=== PATIENT | female | born 1945 | race Hispanic/Latino ===

== ENCOUNTER → 2019-01-13 | Day surgery (SDC) | payer MEDICARE ==
[2018-12-30 12:54] LABS: BASOPHILS % 0.3 % (0.0-1.0); EOSINOPHILS # (AUTO) 0.1 (0.0-0.4); EOSINOPHILS % 1.2 % (0.0-6.0); LYMPHOCYTES # (AUTO) 1.9 (1.0-3.2); LYMPHOCYTES % 32.3 % (18.0-39.1); MEAN CORPUSCULAR HEMOGLOBIN 29.6 pg (28-32); MEAN CORPUSCULAR HGB CONC 32.4 g/dL (31-35); MEAN CORPUSCULAR VOLUME 91.1 fL (81-99); MONOCYTES # (AUTO) 0.5 (0.2-0.8); NEUTROPHILS # (AUTO) 3.4 (2.1-6.9); PLATELET COUNT 185 x10e3/uL (140-360); RED BLOOD COUNT 4.06 x10e6/uL (3.6-5.1); RED CELL DISTRIBUTION WIDTH 13.2 % (11.7-14.4)
[~2019-01-13] MED LIST: CRESTOR PO; HUMALOG100 UNIT/3 SC; LEVEMIR100 UNIT/1 SC; LISINOPRIL PO; MIDAZOLAM HCL 2 MG/2 ML VIAL ONE; PLAVIX75 MG PO; ZOLOFT PO
--- OUTSIDE RECORDS SUMMARY | 2019-01-13 10:05 | XMS REPORT | Continuity of Care Document ---
Author Author [facility] Address Unknown Phone Unavailable Care Team Providers Care Retail Representative Name Role Phone [employer] Unavailable Unavailable Problems Problem Status Onset Date Classification Date Reported Comments Source WEAKNESS/VOMTING Active 08/12/2018 [facility] R52 - "PAIN, UNSPECIFIED" Active 09/29/2016 [facility] Abdominal pain1 Active Problem 03/25/2013 1abnormal LFT's [facility] Abdominal pain1 Active Problem 08/16/2018 abnormal LFT's [place], [facility] Outpatient Imaging [facility] SYNCOPE AND COLLAPSE Active [facility] Medications Medication Details Route Status Patient Instructions Ordering Provider Order Date Source 24 HR mirabegron 50 MG Extended Release Tablet [Myrbetriq] 50 mg, 1 tab, Route: PO, Drug form: ERTAB, Daily, Dosing Weight 109.261, kg, Start date: 08/14/18 9:00:00 SECURITY DISPATCHER, Duration: 30 day, Stop date: 09/12/18 9:00:00 CDT No Longer Active 08/14/2018 [facility] Levemir 40 unit, 0.4 mL, Route: SUB-Q, Drug form: SOLN, Bedtime, Dosing Weight 109.261, kg, Start date: 08/13/18 21:00:00 SECURITY DISPATCHER, Duration: 30 day, Stop date: 09/11/18 21:00:00 CSTNotes: Non-Formulary Drug (Adriel e as Levemir) Do not hold insulin without contacting prescriber WASTE: F/P - Black; E - Municipal Trash Bin "single patient use only" Inactive 08/14/2018 [facility] rosuvastatin 20 mg, 2 tab, Route: PO, Drug form: TAB, Bedtime, Dosing Weight 109.261, kg, Start date: 08/13/18 21:00:00 SECURITY DISPATCHER, Duration: 30 day, Stop date: 09/11/18 21:00:00 CSTNotes: (Same As: Joanna) Inactive 08/14/2018 [facility] Baclofen 10 mg, 1 tab, Route: PO, Drug form: TAB, TID, Dosing Weight 109.261, kg, Start date: 08/13/18 14:00:00 SECURITY DISPATCHER, Duration: 30 day, Stop date: 09/12/18 6:00:00 CDTNotes: (Same As: Lioresal) Inactive 08/13/2018 [facility] clopidogrel 75 mg, 1 tab, Route: PO, Drug form: TAB, Daily, Dosing Weight 109.261, kg, Start date: 08/13/18 10:00:00 SECURITY DISPATCHER, Duration: 30 day, Stop date: 09/12/18 9:00:00 CDTNotes: (Same As: Plavix) Inactive 08/13/2018 [facility] venlafaxine 75 mg, 1 cap, Route: PO, Drug form: ERCAP, Daily, Dosing Weight 109.261, kg, Start date: 08/13/18 10:00:00 SECURITY DISPATCHER, Duration: 30 day, Stop date: 09/12/18 9:00:00 CDTNotes: Do not open, crush, or chew. (Same As: Effexor XR) Inactive 08/13/2018 [facility] Insulin Lispro 1 unit, 0.01 mL, Route: SUB-Q, Drug form: SOLN, Bedtime, Dosing Weight 109.261, kg, PRN Blood Glucose Results, Start date: 08/12/18 21:54:00 SECURITY DISPATCHER, Duration: 30 day, Stop date: 09/11/18 21:53:00 CSTNotes: (Same as: Humalog ) Roll in palms of hands gently; Do not shake `vigorously. "Single Patient Use Only " WASTE: F/P - Black; E - WORKING [employer] WORKS Trash Bin Stable for 28 days at room temperature. Expires in days from Date No Longer Active 08/13/2018 [facility] Glucagon 1 mg, Route: IM, Drug form: PDR/INJ, PRN, Dosing Weight 109.261, kg, PRN Blood Glucose Results, Start date: 08/12/18 21:54:00 SECURITY DISPATCHER, Duration: 30 day, Stop date: 09/11/18 21:53:00 SECURITY DISPATCHER No Longer Active 08/13/2018 [facility] Dextrose 50% Syringe 25 gm, 50 mL, Route: IVP, Drug Form: INJ, Dosing Weight 109.261, kg, PRN, PRN Blood Glucose Results, Start date: 08/12/18 21:54:00 SECURITY DISPATCHER, Duration: 30 day, Stop date: 09/11/18 21:53:00 SECURITY DISPATCHER No Longer Active 08/13/2018 [facility] Saline Flush 0.9% 10 ml, Route: IVP, Drug Form: INJ, Dosing Weight 90.909, kg, Q12H, Start date: 08/12/18 21:00:00 SECURITY DISPATCHER, Duration: 30 day, Stop date: 09/11/18 9:00:00 CSTNotes: (Same as: BD Posiflush) No Longer Active 08/13/2018 [facility] Enoxaparin 40 mg, 0.4 mL, Route: SUB-Q, Drug form: INJ, [id number], Dosing Weight 90.909, kg, Start date: 08/12/18 21:00:00 SECURITY DISPATCHER, Duration: 30 day, Stop date: 09/10/18 21:00:00 CSTNotes: (Same as: Lovenox) No Longer Active 08/13/2018 [facility] Humalog 12 unit, SUB-Q, Lunch, 0 Refill(s) Active 08/12/2018 [facility] insulin detemir 100 UNT/ML Injectable Solution [Levemir] See Instructions, 40 units SUB-Q at bedtime, 0 Refill(s) Active 08/12/2018 [facility] rosuvastatin 20 mg oral tablet 20 mg=1 tab, PO, Daily, dinner time, # 30 tab, 0 Refill(s) Active 08/12/2018 [facility] 24 HR mirabegron 50 MG Extended Release Tablet [Myrbetriq] 50 mg=1 tab, PO, Daily, dinner time, # 30 tab, 0 Refill(s) Active 08/12/2018 [facility] venlafaxine 75 mg oral capsule, extended release 75 mg=1 cap, PO, Daily, morning, # 30 cap, 0 Refill(s) Active 08/12/2018 [facility] Baclofen 10 mg, PO, TID, 0 Refill(s) Active 08/12/2018 [facility] pantoprazole 40 mg oral enteric coated tablet 40 mg=1 tab, PO, Daily, morning, 0 Refill(s) Active 08/12/2018 [facility] clopidogrel 75 mg oral tablet 75 mg=1 tab, PO, Daily, with dinner, 0 Refill(s) Active 08/12/2018 [facility] Hydrochlorothiazide 12.5 MG / Losartan Potassium 100 MG Oral Tablet 1 tab, PO, Daily, morning, # 30 tab, 0 Refill(s) Active 08/12/2018 [facility] Protonix 40 mg, Route: IVP, Drug form: INJ, Before Dinner, Dosing Weight 90.909, kg, Start date: 08/12/18 16:30:00 SECURITY DISPATCHER, Duration: 30 day, Stop date: 09/10/18 16:30:00 CSTNotes: For IV push reconstitute with 10 ml 0.9% sodium chloride and push over 2 minutes. (Same as: Protonix) No Longer Active 08/12/2018 [facility] Saline Flush 0.9% 10 ml, Route: IVP, Drug Form: INJ, Dosing Weight 90.909, kg, PRN, PRN Line Flush, Start date: 08/12/18 15:33:00 SECURITY DISPATCHER, Duration: 30 day, Stop date: 09/11/18 15:32:00 CSTNotes: (Same as: BD Posiflush) No Longer Active 08/12/2018 [facility] Insulin Lispro 2 unit, 0.02 mL, Route: SUB-Q, Drug form: SOLN, Sliding Scale, Dosing Weight 90.909, kg, PRN Blood Glucose Results, Start date: 08/12/18 15:26:00 SECURITY DISPATCHER, Duration: 30 day, Stop date: 09/11/18 15:25:00 C STNotes: (Same as: Humalog ) Roll in palms of hands gently; Do not shake `vigorously. "Single Patient Use Only " WASTE: F/P - Black; E - Municipal Trash Bin Stable for 28 days at room temperature. Expires in days from Date No Longer Active 08/12/2018 [facility] Glucagon 1 mg, Route: IM, Drug form: PDR/INJ, PRN, Dosing Weight 90.909, kg, PRN Blood Glucose Results, Priority: STAT, Start date: 08/12/18 15:26:00 SECURITY DISPATCHER, Duration: 30 day, Stop date: 09/11/18 15:25:00 SECURITY DISPATCHER Inactive 08/12/2018 [facility] Dextrose 50% Syringe 12.5 gm, 25 mL, Route: IVP, Drug Form: INJ, Dosing Weight 90.909, kg, PRN, PRN Blood Glucose Results, Start date: 08/12/18 15:26:00 SECURITY DISPATCHER, Duration: 30 day, Stop date: 09/11/18 15:25:00 SECURITY DISPATCHER Inactive 08/12/2018 [facility] Dextromethorphan Hydrobromide 2 MG/ML / Guaifenesin 20 MG/ML Oral Solution 10 mL, Route: PO, Drug Form: LIQ, Dosing Weight 90.909, kg, Q4H, PRN Cough, Start date: 08/12/18 15:19:00 SECURITY DISPATCHER, Duration: 30 day, Stop date: 09/11/18 15:18:00 CSTNotes: (dextromethorphan-guaifenesin 10-100/5 ml LIQ) (Same as: Robitussin-DM) No Longer Active 08/12/2018 [facility] Albuterol 0.833 MG/ML / Ipratropium [place] 0.167 MG/ML Inhalant Solution [DuoNeb] 3 ml, Route: NEB, Drug Form: SOLN, Dosing Weight 90.909, kg, RQ6H, PRN Congestion, Start date: 08/12/18 15:19:00 SECURITY DISPATCHER, Duration: 30 day, Stop date: 09/11/18 15:18:00 CSTNotes: (Same as: Duoneb) No Longer Active 08/12/2018 [facility] Acetaminophen 325 MG / Hydrocodone Bitartrate 5 MG Oral Tablet [[place] 5/325] 1 tab, Route: PO, Drug Form: TAB, Dosing Weight 90.909, kg, Q4H, PRN Pain Score 4-6, Start date: 08/12/18 15:19:00 SECURITY DISPATCHER, Duration: 30 day, Stop date: 09/11/18 15:18:00 SECURITY DISPATCHER Inactive 08/12/2018 [facility] Hydralazine 10 mg, 0.5 mL, Route: IVP, Drug form: INJ, Q4H, Dosing Weight 90.909, kg, PRN Elevated BP, Start date: 08/12/18 15:19:00 SECURITY DISPATCHER, Duration: 30 day, Stop date: 09/11/18 15:18:00 CSTNotes: (Same as: Kaitlin fernandez) Push over 5 minutes No Longer Active 08/12/2018 [facility] Clonidine Hydrochloride 0.1 MG Oral Tablet 0.1 mg, Route: PO, Drug form: TAB, TID, Dosing Weight 90.909, kg, PRN Elevated BP, Start date: 08/12/18 15:19:00 SECURITY DISPATCHER, Duration: 30 day, Stop date: 09/11/18 15:18:00 SECURITY DISPATCHER Inactive 08/12/2018 [facility] Diphenhydramine 25 mg, 1 tab, Route: PO, Drug form: TAB, Q6H, Dosing Weight 90.909, kg, PRN Itching, Start date: 08/12/18 15:19:00 SECURITY DISPATCHER, Duration: 30 day, Stop date: 09/11/18 15:18:00 SECURITY DISPATCHER No Longer Active 08/12/2018 [facility] Tessalon Perles 100 mg, Route: PO, Drug form: CAP, Q8H, Dosing Weight 90.909, kg, PRN Cough, Start date: 08/12/18 15:19:00 SECURITY DISPATCHER, Duration: 30 day, Stop date: 09/11/18 15:18:00 SECURITY DISPATCHER Inactive 08/12/2018 [facility] Acetaminophen 650 mg, Route: PO, Drug form: TAB, Q4H, Dosing Weight 90.909, kg, PRN For Temp > 100.4 F, Start date: 08/12/18 15:19:00 SECURITY DISPATCHER, Duration: 30 day, Stop date: 09/11/18 15:18:00 SECURITY DISPATCHER Inactive 08/12/2018 [facility] magnesium citrate 58.2 MG/ML Oral Solution 150 ml, Route: PO, Drug Form: LIQ, Dosing Weight 90.909, kg, ONCE, PRN Constipation, Start date: 08/12/18 15:19:00 CSTNotes: (Same as: Citrate of Magnesia) Concentration: 1.745 gm / 30 mL No Longer Active 08/12/2018 [facility] Dulcolax Laxative 10 mg, Route: PO, Drug form: ECTAB, BID, Dosing Weight 90.909, kg, PRN Constipation, Start date: 08/12/18 15:19:00 SECURITY DISPATCHER, Duration: 30 day, Stop date: 09/11/18 15:18:00 SECURITY DISPATCHER Inactive 08/12/2018 [facility] Bisacodyl 10 mg, Route: WV, Drug form: SUPP, Daily, Dosing Weight 90.909, kg, PRN Constipation, Start date: 08/12/18 15:19:00 SECURITY DISPATCHER, Duration: 30 day, Stop date: 09/11/18 15:18:00 SECURITY DISPATCHER Inactive 08/12/2018 [facility] Simethicone 80 mg, 1 tab, Route: PO, Drug form: CHEWTAB, Q6H, Dosing Weight 90.909, kg, PRN Gas, Start date: 08/12/18 15:19:00 SECURITY DISPATCHER, Duration: 2 doses or times, Stop date: Limited # of timesNotes: (Same as: Elias on) No Longer Active 08/12/2018 [facility] Aluminum Hydroxide 40 MG/ML / Magnesium Hydroxide 40 MG/ML / Simethicone 4 MG/ML Oral Suspension 30 mL, Route: PO, Drug Form: SUSP, Dosing Weight 90.909, kg, Q4H, PRN Indigestion, Start date: 08/12/18 15:19:00 SECURITY DISPATCHER, Duration: 30 day, Stop date: 09/11/18 15:18:00 SECURITY DISPATCHER Inactive 08/12/2018 [facility] Ondansetron 4 mg, Route: IVP, Drug form: INJ, Q8H, Dosing Weight 90.909, kg, PRN Nausea & Vomiting, Start date: 08/12/18 15:19:00 SECURITY DISPATCHER, Duration: 30 day, Stop date: 09/11/18 15:18:00 SECURITY DISPATCHER Inactive 08/12/2018 [facility] Milk of Magnesia 30 mL, Route: PO, Drug Form: SUSP, Dosing Weight 90.909, kg, Q3H, PRN Constipation, Start date: 08/12/18 15:19:00 SECURITY DISPATCHER, Duration: 2 doses or times, Stop date: Limited # of timesNotes: (Same as: Milk o f Magnesia, MOM) No Longer Active 08/12/2018 [facility] Sodium Chloride 0.9% IV 1,000 mL 1,000 mL, Rate: 75 ml/hr, Infuse over: 13.3 hr, Route: IV, Dosing Weight 90.909 kg, Total Volume: 1,000, Start date: 08/12/18 15:19:00 SECURITY DISPATCHER, Duration: 30 day, Stop date: 09/11/18 15:18:00 SECURITY DISPATCHER, 2.06, m2 No Longer Active 08/12/2018 [facility] Dulcolax Laxative 10 mg, 2 tab, Route: PO, Drug form: ECTAB, BID, Dosing Weight 90.909, kg, PRN Constipation, Start date: 08/12/18 14:42:00 SECURITY DISPATCHER, Duration: 30 day, Stop date: 09/11/18 14:41:00 CSTNotes: (Same As: Dulcolax , Correctol) (Do Not Crush) "Do Not Crush" No Longer Active 08/12/2018 [facility] magnesium citrate 58.2 MG/ML Oral Solution 150 ml, Route: PO, Dosing Weight 90.909, kg, ONCE, PRN Constipation, Start date: 08/12/18 14:42:00 SECURITY DISPATCHER Inactive 08/12/2018 [facility] Hydralazine 10 mg, Route: IVP, Drug form: INJ, Q4H, Dosing Weight 90.909, kg, PRN Elevated BP, Start date: 08/12/18 14:42:00 SECURITY DISPATCHER, Duration: 30 day, Stop date: 09/11/18 14:41:00 SECURITY DISPATCHER Inactive 08/12/2018 [facility] Clonidine Hydrochloride 0.1 MG Oral Tablet 0.1 mg, 1 tab, Route: PO, Drug form: TAB, TID, Dosing Weight 90.909, kg, PRN Elevated BP, Start date: 08/12/18 14:42:00 SECURITY DISPATCHER, Duration: 30 day, Stop date: 09/11/18 14:41:00 CSTNotes: (Same As: Catapres) No Longer Active 08/12/2018 [facility] Acetaminophen 325 MG / Hydrocodone Bitartrate 5 MG Oral Tablet [[place] 5/325] 1 tab, Route: PO, Drug Form: TAB, Dosing Weight 90.909, kg, Q4H, PRN Pain Score 4-6, Start date: 08/12/18 14:42:00 SECURITY DISPATCHER, Duration: 30 day, Stop date: 09/11/18 14:41:00 CSTNotes: (Same as: [place] 325/5) Do not exceed 4gm/day of acetaminophen. No Longer Active 08/12/2018 [facility] Albuterol 0.833 MG/ML / Ipratropium [place] 0.167 MG/ML Inhalant Solution [DuoNeb] 3 ml, Route: NEB, Drug Form: SOLN, Dosing Weight 90.909, kg, RQ6H, PRN Congestion, Start date: 08/12/18 14:42:00 SECURITY DISPATCHER, Duration: 30 day, Stop date: 09/11/18 14:41:00 SECURITY DISPATCHER Inactive 08/12/2018 [facility] Dextromethorphan Hydrobromide 2 MG/ML / Guaifenesin 20 MG/ML Oral Solution 10 mL, Route: PO, Drug Form: LIQ, Dosing Weight 90.909, kg, Q4H, PRN Cough, Start date: 08/12/18 14:42:00 SECURITY DISPATCHER, Duration: 30 day, Stop date: 09/11/18 14:41:00 SECURITY DISPATCHER Inactive 08/12/2018 [facility] Tessalon Perles 100 mg, 1 cap, Route: PO, Drug form: CAP, Q8H, Dosing Weight 90.909, kg, PRN Cough, Start date: 08/12/18 14:42:00 SECURITY DISPATCHER, Duration: 30 day, Stop date: 09/11/18 14:41:00 CSTNotes: (Same As: Tessalon Michelle es) "Do Not Crush" No Longer Active 08/12/2018 [facility] Diphenhydramine 25 mg, Route: PO, Drug form: TAB, Q6H, Dosing Weight 90.909, kg, PRN Itching, Start date: 08/12/18 14:42:00 SECURITY DISPATCHER, Duration: 30 day, Stop date: 09/11/18 14:41:00 SECURITY DISPATCHER Inactive 08/12/2018 [facility] Acetaminophen 650 mg, 2 tab, Route: PO, Drug form: TAB, Q4H, Dosing Weight 90.909, kg, PRN For Temp > 100.4 F, Start date: 08/12/18 14:42:00 SECURITY DISPATCHER, Duration: 30 day, Stop date: 09/11/18 14:41:00 CSTNotes: Do not exceed 4 gm/day. (Same as: Tylenol) No Longer Active 08/12/2018 [facility] Aluminum Hydroxide 40 MG/ML / Magnesium Hydroxide 40 MG/ML / Simethicone 4 MG/ML Oral Suspension 30 mL, Route: PO, Drug Form: SUSP, Dosing Weight 90.909, kg, Q4H, PRN Indigestion, Start date: 08/12/18 14:42:00 SECURITY DISPATCHER, Duration: 30 day, Stop date: 09/11/18 14:41:00 CSTNotes: (aluminum hydroxide-magnesium hyd-simethicone [id number]/5ml 30 ml ud KAYLA) No Longer Active 08/12/2018 [facility] Bisacodyl 10 mg, 1 supp, Route: WV, Drug form: SUPP, Daily, Dosing Weight 90.909, kg, PRN Constipation, Start date: 08/12/18 14:42:00 SECURITY DISPATCHER, Duration: 30 day, Stop date: 09/11/18 14:41:00 CSTNotes: (Same As: Dulcolax, Bisco-Lax) No Longer Active 08/12/2018 [facility] Ondansetron 4 mg, 2 mL, Route: IVP, Drug form: INJ, Q8H, Dosing Weight 90.909, kg, PRN Nausea & Vomiting, Start date: 08/12/18 14:42:00 SECURITY DISPATCHER, Duration: 30 day, Stop date: 09/11/18 14:41:00 CSTNotes: (Same as: Zofran) MEDICATION WASTE Product Size: 4 mg Product Wasted: ___ mg No Longer Active 08/12/2018 [facility] Simethicone 80 mg, Route: PO, Drug form: CHEWTAB, Q6H, Dosing Weight 90.909, kg, PRN Gas, Start date: 08/12/18 14:42:00 SECURITY DISPATCHER, Duration: 2 doses or times, Stop date: Limited # of times Inactive 08/12/2018 [facility] Milk of Magnesia 30 mL, Route: PO, Drug Form: SUSP, Dosing Weight 90.909, kg, Q3H, PRN Constipation, Start date: 08/12/18 14:42:00 SECURITY DISPATCHER, Duration: 2 doses or times, Stop date: Limited # of times Inactive 08/12/2018 [facility] Aspirin 324 mg, 4 tab, Route: CHEW, Drug form: CHEWTAB, ONCE, Dosing Weight 90.909, kg, Priority: STAT, Start date: 08/12/18 14:05:00 SECURITY DISPATCHER, Stop date: 08/12/18 14:05:00 CSTNotes: Take with food. Inactive 08/12/2018 [facility] Omnipaque 300 injectable solution 100 mL, Route: IVP, Drug Form: SOLN, Dosing Weight 90.909, kg, ONCE, GFR > 45 mL/min, STAT, Start date: 08/12/18 11:49:00 SECURITY DISPATCHER, Stop date: 08/12/18 11:49:00 CSTNotes: (Same as:Omnipaque 300). WASTE: F/P - Black; E - Municipal Trash Bin Inactive 08/12/2018 [facility] Famotidine 20 mg, Route: IVP, ONCE, Dosing Weight 90.909, kg, Priority: STAT, Start date: 08/12/18 10:50:00 SECURITY DISPATCHER, Stop date: 08/12/18 10:50:00 SECURITY DISPATCHER Inactive 08/12/2018 [facility] Ondansetron 4 mg, Route: IVP, ONCE, Dosing Weight 90.909, kg, Priority: STAT, Start date: 08/12/18 10:50:00 SECURITY DISPATCHER, Stop date: 08/12/18 10:50:00 SECURITY DISPATCHER Inactive 08/12/2018 [facility] Sodium Chloride 0.9% (Bolus) IV 500 mL, Infuse Over: 1 hr, Route: IV, ONCE, Priority: STAT, Dosing Weight 90.909 kg, Start date: 08/12/18 10:50:00 SECURITY DISPATCHER, Stop date: 08/12/18 10:50:00 SECURITY DISPATCHER Inactive 08/12/2018 [facility] Saline Flush 0.9% 10 mL, Route: IVP, Drug Form: INJ, Dosing Weight 90.909, kg, PRN, PRN Line Flush, Start date: 08/12/18 10:50:00 SECURITY DISPATCHER, Duration: 30 day, Stop date: 09/11/18 10:49:00 CSTNotes: (Same as: BD Posiflush) Inactive 08/12/2018 [facility] Allergies, Adverse Reactions, Alerts Substance Category Reaction Severity Reaction type Status Date Reported Comments Source penicillins Assertion Drug allergy Active [facility] Immunizations No Data Provided for This Section Results Order Name Results Value Reference Range Date Interpretation Comments Source ELECTROLYTES Sodium Lvl 144 135 - 145 08/13/2018 [facility] ELECTROLYTES Creatinine Lvl 1.12 0.50 - 1.40 08/13/2018 [facility] ELECTROLYTES Glucose Lvl 174 70 - 99 08/13/2018 [facility] ELECTROLYTES BUN 25 7 - 22 08/13/2018 [facility] ELECTROLYTES eGFR 49 08/13/2018 Result Comment: The eGFR is calculated using the CKD-EPI formula. In most young, healthy individuals the eGFR will be >90 mL/min/1.73m2. The eGFR declines with age. An eGFR of 60-89 may be normal in some populations, particularly the elderly, for whom the CKD-EPI formula has not been extensively validated. Use of the eGFR is not recommended in the following populations:

Individuals with unstable creatinine concentrations, including patients and those with serious co-morbid conditions.

Patients with extremes in muscle mass or diet.

The data above are obtained from the National Kidney Disease Education Program (NKDEP) which additionally recommends that when the eGFR is used in patients with extremes of body mass index for purposes of drug dosing, the eGFR should be multiplied by the estimated BMI. [facility] ELECTROLYTES Chloride Lvl 107 95 - 109 08/13/2018 [facility] ELECTROLYTES Potassium Lvl 4.3 3.5 - 5.1 08/13/2018 [facility] ELECTROLYTES Calcium Lvl 8.9 8.5 - 10.5 08/13/2018 [facility] ELECTROLYTES CO2 30 24 - 32 08/13/2018 [facility] ELECTROLYTES AGAP 11.3 10.0 - 20.0 08/13/2018 [facility] Hct 38.3 36.0 - 48.0 08/13/2018 [facility] HEMATOLOGY MCV 91.5 80.0 - 98.0 08/13/2018 [facility] HEMATOLOGY Platelet 154 133 - 450 08/13/2018 [facility] RDW 14.0 11.5 - 14.5 08/13/2018 [facility] MCHC 32.4 32.0 - 36.0 08/13/2018 [facility] MCH 29.6 27.0 - 31.0 08/13/2018 [facility] Hgb 12.4 12.0 - 16.0 08/13/2018 [facility] RBC 4.19 4.20 - 5.40 08/13/2018 [facility] WBC 6.0 3.7 - 10.4 08/13/2018 [facility] MPV 9.1 7.4 - 10.4 08/13/2018 [facility] HEMATOLOGY Segs 64.4 45.0 - 75.0 08/13/2018 [facility] HEMATOLOGY Eosinophils # 0.1 0.0 - 0.5 08/13/2018 [facility] HEMATOLOGY Monocytes # 0.7 0.0 - 0.8 08/13/2018 [facility] HEMATOLOGY Lymphocytes 22.9 20.0 - 40.0 08/13/2018 [facility] HEMATOLOGY Lymphocytes # 1.4 1.0 - 5.5 08/13/2018 [facility] HEMATOLOGY Neutrophils # 3.9 1.5 - 8.1 08/13/2018 [facility] HEMATOLOGY Basophils 0.4 0.0 - 1.0 08/13/2018 [facility] HEMATOLOGY Eosinophils 0.8 0.0 - 4.0 08/13/2018 [facility] Monocytes 11.5 2.0 - 12.0 08/13/2018 [facility] CARDIAC ENZYMES Troponin-I <0.02 0.00 - 0.40 08/13/2018 [facility] CARDIAC ENZYMES Troponin-I 0.02 0.00 - 0.40 08/12/2018 [facility] CARDIAC ENZYMES Troponin-I <0.02 0.00 - 0.40 08/12/2018 [facility] CHEM PANEL Amylase Lvl 77 25 - 115 08/12/2018 [facility] CHEM PANEL Lipase Lvl 183 73 - 393 08/12/2018 [facility] CHEM PANEL eGFR 49 08/12/2018 Result Comment: The eGFR is calculated using the CKD-EPI formula. In most young, healthy individuals the eGFR will be >90 mL/min/1.73m2. The eGFR declines with age. An eGFR of 60-89 may be normal in some populations, particularly the elderly, for whom the CKD-EPI formula has not been extensively validated. Use of the eGFR is not recommended in the following populations:

Individuals with unstable creatinine concentrations, including patients and those with serious co-morbid conditions.

Patients with extremes in muscle mass or diet.

The data above are obtained from the National Kidney Disease Education Program (NKDEP) which additionally recommends that when the eGFR is used in patients with extremes of body mass index for purposes of drug dosing, the eGFR should be multiplied by the estimated BMI. [facility] CHEM PANEL Chloride Lvl 102 95 - 109 08/12/2018 [facility] CHEM PANEL Calcium Lvl 9.2 8.5 - 10.5 08/12/2018 [facility] CHEM PANEL CO2 29 24 - 32 08/12/2018 [facility] CHEM PANEL Total Protein 7.3 6.4 - 8.4 08/12/2018 [facility] CHEM PANEL Albumin Lvl 3.6 3.5 - 5.0 08/12/2018 [facility] CHEM PANEL Creatinine Lvl 1.11 0.50 - 1.40 08/12/2018 [facility] CHEM PANEL Sodium Lvl 139 135 - 145 08/12/2018 [facility] CHEM PANEL Potassium Lvl 4.6 3.5 - 5.1 08/12/2018 [facility] CHEM PANEL ALT 20 0 - 65 08/12/2018 [facility] CHEM PANEL AST 21 0 - 37 08/12/2018 [facility]M PANEL Alk Phos 105 39 - 136 08/12/2018 [facility] CHEM PANEL Bili Total 0.4 0.2 - 1.3 08/12/2018 [facility] CHEM PANEL BUN 30 7 - 22 08/12/2018 [facility] CHEM PANEL Glucose Lvl 209 70 - 99 08/12/2018 [facility] CHEM PANEL B/C Ratio 27 6 - 25 08/12/2018 [facility] CHEM PANEL Globulin 3.7 2.7 - 4.2 08/12/2018 [facility] CHEM PANEL A/G Ratio 1.0 0.7 - 1.6 08/12/2018 [facility] CHEM PANEL AGAP 12.6 10.0 - 20.0 08/12/2018 [facility] HEMATOLOGY Monocytes # 0.3 0.0 - 0.8 08/12/2018 [facility] HEMATOLOGY Lymphocytes # 0.8 1.0 - 5.5 08/12/2018 [facility] HEMATOLOGY Neutrophils # 6.6 1.5 - 8.1 08/12/2018 [facility] HEMATOLOGY Basophils 0.3 0.0 - 1.0 08/12/2018 [facility] HEMATOLOGY Lymphocytes 10.3 20.0 - 40.0 08/12/2018 [facility] HEMATOLOGY Monocytes 4.2 2.0 - 12.0 08/12/2018 [facility] HEMATOLOGY Segs 85.2 45.0 - 75.0 08/12/2018 [facility] HEMATOLOGY RDW 13.7 11.5 - 14.5 08/12/2018 [facility] HEMATOLOGY Hct 42.2 36.0 - 48.0 08/12/2018 [facility] HEMATOLOGY WBC 7.8 3.7 - 10.4 08/12/2018 [facility] HEMATOLOGY RBC 4.63 4.20 - 5.40 08/12/2018 [facility] [facility] HEMATOLOGY MPV 9.0 7.4 - 10.4 08/12/2018 [facility] HEMATOLOGY Platelet 160 133 - 450 08/12/2018 [facility] HEMATOLOGY Hgb 13.7 12.0 - 16.0 08/12/2018 [facility] HEMATOLOGY MCHC 32.5 32.0 - 36.0 08/12/2018 [facility] HEMATOLOGY MCH 29.6 27.0 - 31.0 08/12/2018 [facility] HEMATOLOGY MCV 91.3 80.0 - 98.0 08/12/2018 [facility] HEMATOLOGY PT 12.1 12.0 - 14.7 08/12/2018 [facility] HEMATOLOGY INR 0.91 0.85 - 1.17 08/12/2018 [facility] HEMATOLOGY PTT 33.5 22.9 - 35.8 08/12/2018 [facility] URINE AND STOOL UA Sq Epi Few /LPF Few /LPF 08/12/2018 [facility] URINE AND STOOL UA WBC 2 0 - 5 08/12/2018 [facility] URINE AND STOOL UA Mucus Few /LPF None Seen /LPF 08/12/2018 [facility] URINE AND STOOL UA RBC 25 0 - 2 08/12/2018 [facility] URINE AND STOOL UA Bacteria Occasional /HPF None Seen /HPF 08/12/2018 [facility] URINE AND STOOL UA Leuk Est Negative (08/12/18 10:55 AM) Negative 08/12/2018 [facility] URINE AND STOOL UA Protein 100 mg/dL Negative mg/dL 08/12/2018 [facility] URINE AND STOOL UA pH 6.5 5.0 - 8.0 08/12/2018 [facility] URINE AND STOOL UA Ketones Negative *NA* (08/12/18 10:55 AM) Negative 08/12/2018 [facility] URINE AND STOOL UA Bili Negative *NA* (08/12/18 10:55 AM) Negative 08/12/2018 [facility] URINE AND STOOL UA Glucose 250 *ABN* (08/12/18 10:55 AM) Negative 08/12/2018 [facility] URINE AND STOOL UA Nitrite Negative (08/12/18 10:55 AM) Negative 08/12/2018 [facility] URINE AND STOOL UA Blood Moderate *ABN* (08/12/18 10:55 AM) Negative 08/12/2018 [facility] URINE AND STOOL UA Urobilinogen 0.2 0.1 - 1.0 08/12/2018 [facility] URINE AND STOOL UA Color Yellow *NA* (08/12/18 10:55 AM) Yellow 08/12/2018 [facility] URINE AND STOOL UA Turbidity Slight Cloudy (08/12/18 10:55 AM) Clear 08/12/2018 [facility] URINE AND STOOL UA Spec Grav 1.020 <=1.030 08/12/2018 [facility] Pathology Reports No Data Provided for This Section Diagnostic Reports Report Value Date Source Brain wo contrast MRI Clinical Indication: - left weakness, N/V Comparison: Comparison is made to CT study of 08/12/2018 MR study 08/05/2018 TECHNIQUE: Multiplanar MRI of the brain is performed on a 1.5 Aida magnet. Contrast: None FINDINGS: BRAIN PARENCHYMA: There is no acute cortical infarct, parenchymal hemorrhage or an intra-axial mass. Cystic encephalomalacia with hemosiderin deposition is present from infarction and previous hemorrhage of the right putamen extending into the pal radiata and involving the caudate nucleus. There is a chronic cortical infarct of the right pre and postcentral gyri of the frontal and parietal lobe. There is ex vacuo change to the posterior body and atrium of the lateral ventricle. There is Wallerian degeneration. Findings are stable. There is a chronic cortical infarct the left frontal lobe with subcortical gliosis. Flow is seen in the 4th portions of both vertebral arteries, the basilar artery and left internal carotid artery. Occlusion of the right is present. There is flow in the anterior to indicating artery and M1/M2 segments of the middle cerebral artery. There are no extra-axial fluid collections. Sella and parasellar structures in normal. There is no cerebellar tonsillar ectopia. The cochlea, vestibule and 7th and 8th nerve fascicles in normal. CEREBELLOPONTINE REGIONS AND SKULL BASE: The cerebellopontine angles appear unremarkable. The skull base, craniocervical junction, and brainstem are normal. The optic chiasm is normal. The sellar and pineal regions are unremarkable. VENTRICLES: The ventricles are normal in size and configuration. The basilar cisterns are normal. VESSELS: The venous sinuses are grossly unremarkable. The expected intracranial flow voids are present. ORBITS, VISUALIZED PARANASAL SINUSES AND MASTOIDS: The visualized orbits and paranasal sinuses are unremarkable. The mastoid air cells are clear. IMPRESSION: There is no acute cortical infarct, parenchymal hemorrhage or an intra-axial mass. Cystic encephalomalacia with hemosiderin deposition is present from infarction and previous hemorrhage of the right putamen extending into the pal radiata and involving the caudate nucleus. There is a chronic cortical infarct of the right pre and postcentral gyri of the frontal and parietal lobe. There is ex vacuo change to the posterior body and atrium of the lateral ventricle. There is Wallerian degeneration. Findings are stable. There is a chronic cortical infarct the left frontal lobe with subcortical gliosis. Occlusion of the petrous, precavernous and cavernous portion of the right internal carotid artery is stable. SL: [place] 08/12/2018 [facility] Brain wo contrast CT Patient Name: BREANNA WELLS : 1945; Age: 72 years y/o Female MR: [id number] Study: Brain wo contrast CT 08/12/2018 10:50 AM SECURITY DISPATCHER Ordering Physician: Kilo Cantu DO Clinical Indication: - generalized weakness; Comparison: 08/05/2018 TECHNIQUE: CT images were obtained from the foramen magnum to the vertex without the use of intravenous contrast on a multidetector CT. Coronal and sagittal reconstructions were obtained. CT imaging performed at this location utilizes radiation dose optimization techniques which include one or more of the following: -Automated exposure control -Adjustment of the mA and/or kV according to patient size -Use of iterative reconstruction technique CT Radiation Dose DLP 1140 mGy-cm FINDINGS: No evidence of acute intracranial hemorrhage. No mass effect, midline shift or extra-axial fluid collection. Old right MCA infarct with encephalomalacia and gliosis in the right frontoparietal and temporal lobes and large cystic encephalomalacia in the region of the basal ganglia. There is compensatory dilatation of the right lateral ventricle and wallerian degeneration in the descending tracts. Small old left frontal infarct. The calvarium, paranasal sinuses and mastoids are unremarkable. IMPRESSION: No acute intracranial process evident. Old right MCA infarct. Old small left frontal infarct. If there is further concern for intracranial pathology or acute stroke, further assessment with an MRI of the brain should be considered. SL: [id number] 08/12/2018 [facility] ED Abdomen/Pelvis IV contrast only CT Clinical Indication: - vomiting and abdominal pain. Comparison: CT dated 07/25/2010 TECHNIQUE: Helical imaging was performed from diaphragm through the symphysis with multiplanar coronal and sagittal reformations obtained. CT imaging was performed with exposure control parameters to reduce radiation dose. IV CONTRAST: 100 cc Omnipaque. GI CONTRAST: NONE CT imaging performed at this location utilizes radiation dose optimization techniques which include one or more of the following: -Automated exposure control -Adjustment of the mA and/or kV according to patient size -Use of iterative reconstruction technique CT Radiation Dose DLP 1299.55 mGy-cm FINDINGS: LOWER CHEST: The lung bases are clear. LIVER: Unremarkable. GALLBLADDER: Status post cholecystectomy INTRAHEPATIC BILE DUCT AND EXTRAHEPATIC BILE DUCT: Mild intrahepatic biliary dilatation. CBD measures 1.2 cm, unchanged. PANCREAS: Unremarkable. SPLEEN: Unremarkable. ADRENALS: Unremarkable. KIDNEYS AND URETERS: Large exophytic cyst measuring approximately 6.5 x 7.1 x 5.8 cm. No hydronephrosis in either kidney. STOMACH: Small hiatal hernia BOWEL: Colonic diverticulosis without CT evidence of diverticulitis. No bowel wall thickening or obstruction.. The lack of orally administered contrast material limits assessment. APPENDIX: Normal appendix PERITONEUM AND RETROPERITONEUM: No ascites or free air. No other fluid collection. Moderate to severe atherosclerotic disease of the abdominal aorta and its branches. No abdominal aortic aneurysm. LYMPH NODES: Unremarkable. PELVIS: No pelvic mass or adenopathy. BLADDER: Unremarkable. OSSEOUS STRUCTURES: No acute abnormality seen. SOFT TISSUES: Moderate size fat-containing umbilical hernia. IMPRESSION: Status post cholecystectomy. Colonic diverticulosis without CT evidence of diverticulitis. Normal appendix. Moderate size fat-containing umbilical hernia. Small hiatal hernia. SL: ALIVIA 08/12/2018 [facility] Brain wo contrast MRI Clinical Indication: Left-sided weakness and parkinsonism Comparison: CT dated 08/05/2018 TECHNIQUE: Multiplanar MRI of the brain is performed without gadolinium contrast. Axial T1, T2, FLAIR and diffusion weighted imaging is performed with sagittal FLAIR and coronal T1-weighted imaging. Full and complete MRI brain without gadolinium contrast exam was performed. Contrast: None. FINDINGS: There is no diffusion evidence of acute infarction. There is no acute intracranial hemorrhage or mass effect. There are moderate involutional changes in the brain. There is an old right MCA infarct. Wallerian degeneration is noted in the right cerebral peduncle. Old infarct is noted in the left frontal lobe. Small foci of T2 hyperintensity are noted in the left periventricular region and eunice likely secondary to microvascular white matter disease. There is no extra-axial collection. There is moderate ventriculomegaly secondary to involutional changes. The cervicomedullary junction is unremarkable. The visualized intracranial flow voids are unremarkable. The visualized orbits, sella and suprasellar region are within normal limits. The visualized paranasal sinuses and mastoids are clear. IMPRESSION: No acute infarct, intracranial hemorrhage or mass effect. Old right MCA infarct. Old infarct in the left frontal lobe. SL: ALIVIA 08/05/2018 [facility] Brain/Neck CTA EXAM: CTA BRAIN EXAM: CTA NECK DATE: 08/05/2018 11:07 AM SECURITY DISPATCHER INDICATION: - I67.89 Memory loss COMPARISON: None TECHNIQUE: Rapid acquisition spiral CT images of the brain and neck were obtained between the aortic arch and the cranial vertex during intravenous infusion of iodinated contrast for the purposes of CT angiography. 3-D CT angiographic images are created using MIP technique at the acquisition workstation. The source images are also presented for interpretation. IV contrast: 100 cc of intravenous Omnipaque CT imaging performed at this location utilizes radiation dose optimization techniques which include one or more of the following: -Automated exposure control -Adjustment of the mA and/or kV according to patient size -Use of iterative reconstruction technique CT Radiation Dose DLP 3851 mGy-cm FINDINGS: NECK CTA: Aortic arch: The great vessels originate from the aortic arch in the standard configuration. Mild atheromatous changes. No origin stenosis.. The vertebral artery origins are patent bilaterally. Carotid arteries: The common carotid arteries are unremarkable. There are moderate atheromatous calcifications in the right carotid bulb. There is complete occlusion of the right cervical internal carotid artery without reconstitution in the neck. ECA is unremarkable. Moderate atheromatous calcifications in the left carotid bulb and proximal internal carotid artery without flow-limiting stenosis in the internal carotid artery or ECA. Vertebral arteries: The vertebral arteries have a normal course, caliber and contour. Asymmetry at the level of the tongue, likely right sided atrophy. BRAIN CTA: There is occlusion of the horizontal petrous portion of the right internal carotid artery. There is reconstitution of the cavernous and supraclinoid segments. The supra clinoid segment is smaller in caliber compared to the left. M1 and M2 segments of the right MCA and A1 and A2 segments of the right NURYS are patent. Old infarct in the distribution of right MCA is present with cystic encephalomalacia in the basal ganglia and insula malacia/gliosis in the right frontoparietal and temporal lobes. Left intracranial internal carotid artery, left middle and anterior cerebral arteries are unremarkable. The anterior communicating artery is unremarkable. Bilateral posterior communicating arteries are visualized, right one larger than the left. The vertebrobasilar system is grossly unremarkable. The deep cerebral veins and major venous sinuses are normal. The brain parenchyma and other incidental structures are unremarkable. 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 Right MCA and right NURYS are patent. Patent right posterior communicating artery and anterior communicating artery. Rest of the intracranial vessels are patent. Mild intracranial atherosclerosis. Old right MCA infarct. Moderate atheromatous changes in the left carotid bulb without flow-limiting stenosis. No flow-limiting vertebral artery stenosis. Asymmetry appearance of the tongue, possibly right-sided atrophy. (All qualitative and quantitative assessments of carotid bifurcation and proximal internal carotid artery stenosis are made referencing the distal internal carotid artery {NASCET criteria}.) 08/05/2018 [facility] Breast Mammo Scrn SHAWN incl CAD MA BILATERAL DIGITAL SCREENING MAMMOGRAM WITH CAD: 12/25/2017 CLINICAL: Encounter For Screening Mammogram For Malignant Neoplasm Of Breast/Z12.31. Current study was evaluated with a Computer Aided Detection (CAD) system. COMPARISON:Comparison is made to exams dated: 2016 mammogram, 09/01/2015 mammogram, 07/14/2014 mammogram, and 05/07/2013 mammogram - [facility]. TECHNIQUE: Mammographic views were obtained using digital acquisition. Current study was also evaluated with a Computer Aided Detection (CAD) system. FINDINGS: There are scattered fibroglandular densities in both breasts. No significant masses, calcifications, or other findings are seen in either breast. There has been no significant interval change. IMPRESSION: NEGATIVE RECOMMENDATION:There is no mammographic evidence of malignancy. A 1 year screening mammogram is recommended.(12/26/2018) This exam was interpreted at [id number] at [facility]. Professional services are provided by the [facility]. Dr. Lis Levine D.O. ht/missy:12/25/2017 11:06:59 Program Paraprofessional(s): RT Mario(R)(M), [facility] letter sent: BI-RADS 1/2 Mammogram BI-RADS: 1 Negative 12/25/2017 [facility] Breast Mammo Scrn SHAWN incl CAD MA - BREAST MAMMO SCRN SHAWN INCL CAD MA BILATERAL DIGITAL SCREENING MAMMOGRAM WITH CAD: 2016 CLINICAL: Screening/Z12.31. Current study was evaluated with a Computer Aided Detection (CAD) system. Comparison is made to exams dated: 09/01/2015 mammogram, 07/14/2014 mammogram and 05/07/2013 mammogram - [facility]. There are scattered fibroglandular densities in both breasts. Findings: No significant masses, calcifications, or other findings are seen in either breast. There has been no significant interval change. IMPRESSION: BENIGN There is no mammographic evidence of malignancy. A 1 year screening mammogram is recommended. Professional services are provided by the [facility] Diagnostic Imaging. Romana junior/missy:12/22/2016 08:50:38 Program Paraprofessional: Erin Belle, [facility] This exam was dictated and interpreted by [address] [place] [id number]. letter sent: Normal exam Mammogram BI-RADS: 2 Benign 2016 [facility] Hip bilat w pelvis and both lat hips DX EXAM: Hip bilat w pelvis and both lat hips DX HISTORY: hip pain COMPARISON: 05/14/2012 AP pelvis and lateral view of each hip. FINDINGS: There is mild bilateral joint space narrowing with small acetabular rim osteophyte formation. No fracture or dislocation is seen. No focal osseous lesion is apparent. IMPRESSION: Mild degenerative change. 10/02/2016 [facility] Digital Mammo Screening Shawn MA - DIGITAL MAMMO SCREENING SHAWN MA BILATERAL DIGITAL SCREENING MAMMOGRAM WITH CAD: 09/01/2015 CLINICAL: Z12.31 Encounter For Screening Mammogram For Malignant Neoplasm Of Breast. Current study was evaluated with a Computer Aided Detection (CAD) system. Comparison is made to exams dated: 07/14/2014 mammogram, 05/07/2013 mammogram - [facility], 08/12/2010 mammogram - [facility] and 06/06/2002 mammogram - [facility]. There are scattered fibroglandular densities in both breasts. There are benign appearing calcifications in both breasts. No significant masses, calcifications, or other findings are seen in either breast. There has been no significant interval change. IMPRESSION: BENIGN There is no mammographic evidence of malignancy. A 1 year screening mammogram is recommended. Thiago Deluca M.D. /penrad:09/03/2015 08:36:30 Program Paraprofessional: Renate Duvall RT(R)(M), [facility] This exam was dictated and interpreted by [id number] for Dominique. letter sent: Normal exam Mammogram BI-RADS: 2 Benign 09/01/2015 [facility] Digital Mammo Screening Shawn MA - DIGITAL MAMMO SCREENING SHAWN MA BILATERAL DIGITAL SCREENING MAMMOGRAM WITH CAD: 07/14/2014 CLINICAL: Routine. Current study was evaluated with a Computer Aided Detection (CAD) system. Comparison is made to exams dated: 05/07/2013 mammogram - [facility] and 08/12/2010 mammogram - [facility]. The tissue of both breasts is almost entirely fat. Acquired images are the best technically achievable. No significant masses, calcifications, or other findings are seen in either breast. There has been no significant interval change. IMPRESSION: NEGATIVE There is no mammographic evidence of malignancy. A screening mammogram in one year is recommended. Dr. Lis Levine D.O. /penrad:07/14/2014 10:57:50 Program Paraprofessional: Vicki Schmitz RT(R)(M), [facility] This exam was dictated and interpreted by [id number] for Dominique. letter sent: Normal exam Mammogram BI-RADS: 1 Negative 07/14/2014 [facility] Knee 4+ views bilat Exam: Right and left knee x-rays, 4 views each Reason for Exam: Bilateral knee pain Comparison Exam: None Discussion: Right: No acute bony abnormalities. Mild tricompartmental osteoarthritis. No suspicious osteoblastic or osteolytic lesions. Left: No acute bony abnormalities. Mild tricompartmental osteoarthritis. No suspicious osteoblastic or osteolytic lesions. Impression: 1. Mild tricompartmental osteoarthritis. 03/07/2014 [facility] Shoulder series LEFT SHOULDER SERIES CLINICAL HISTORY: Shoulder pain. COMPARISON IMAGING: None. FINDINGS: Three views of the shoulder were acquired. Tiny marginal osteophytes along the glenoid suggest early osteoarthritis. Joint space is otherwise maintained. Bones appear demineralized. DEXA scan could be considered if not already performed. No fracture, dislocation, or suspicious radiopaque foreign body is seen. Soft tissues are unremarkable. IMPRESSION: Early osteoarthritis. Bones appear demineralized. 10/18/[address] [facility] Digital Mammo Screening Shawn MA - DIGITAL MAMMO SCREENING SHAWN MA BILATERAL DIGITAL SCREENING MAMMOGRAM WITH CAD: 05/07/2013 CLINICAL: Screening. Current study was evaluated with a Computer Aided Detection (CAD) system. Comparison is made to exam dated: 08/12/2010 mammogram - [facility]. The tissue of both breasts is predominantly fatty. Acquired images are the best technically achievable. No significant masses, calcifications, or other findings are seen in either breast. There has been no significant interval change. IMPRESSION: BENIGN There is no mammographic evidence of malignancy. A screening mammogram in one year is recommended. Dr. Samy Matias M.D. eoc/penrad:05/18/2013 09:05:46 Program Paraprofessional: Maria Smith RT, [facility] This exam was dictated and interpreted by [id number] for Opal Mata. letter sent: Normal exam Mammogram BI-RADS: 2 Benign 05/07/2013 [facility] Shoulder 2+ Views Bilateral Six views of the shoulders. INDICATION: Pain. FINDINGS: Internal rotation of both shoulders is not entirely achieved. No acute fracture or dislocation of both shoulders. Intact glenohumeral joints. Mild left greater than right acromioclavicular osteoarthritis. IMPRESSION: No acute fracture 03/23/[address] [facility] Consultation Notes No Data Provided for This Section Discharge Summaries No Data Provided for This Section History and Physicals No Data Provided for This Section Vital Signs Vital Sign Value Date Comments Source Systolic (mm Hg) 142 08/13/2018 [facility] Diastolic (mm Hg) 78 08/13/2018 [facility] Heart Rate 81 08/13/2018 [facility] Systolic (mm Hg) 146 08/13/2018 [facility] Diastolic (mm Hg) 71 08/13/2018 [facility] Temperature Oral (F) 97.7 F 08/13/2018 [facility] Heart Rate 81 08/13/2018 [facility] Respitory Rate 18 08/13/2018 [facility] Respitory Rate 18 08/13/2018 [facility] Systolic (mm Hg) 129 08/13/2018 [facility] Diastolic (mm Hg) 80 08/13/2018 [facility] Temperature Oral (F) 97.9 F 08/13/2018 [facility] Heart Rate 90 08/13/2018 [facility] Respitory Rate 18 08/13/2018 [facility] Temperature Oral (F) 97.8 F 08/13/2018 [facility] BMI Calculated 42.67 08/12/2018 [facility] Weight 109.261 08/12/2018 [facility] Height 160.02 cm 08/12/2018 [facility] BMI Calculated 34.4 08/12/2018 [facility] Weight 90.909 08/12/2018 [facility] Height 162.56 cm 08/12/2018 [facility] Encounters Location Location Details Encounter Type Encounter Number Reason For Visit Attending Provider ADM Date DC Date Status Source [facility] [id number] Jaida Joann 10/18/2013 10/19/2013 [facility] [id number] Jaida Joann 03/07/2014 03/08/2014 [facility] [place] [id number] Jaida Joann 07/14/2014 07/15/2014 [facility] [place] [id number] Jaida Joann 09/01/2015 09/02/2015 [facility] [place] [id number] Jaida Joann 10/02/2016 10/03/2016 [facility] [place] [id number] Jaida Joann 11/17/2016 11/18/2016 [facility] [place] [facility] [id number] Jaida Joann 2016 12/21/2016 [facility] [place] [facility] [id number] Jaida Joann 12/25/2017 12/26/2017 [facility] Outpatient Imaging [facility] Outpt Diag Services [id number] Roger Faust 08/05/2018 08/06/2018 [facility] Outpatient Imaging [facility] Observation [id number] Fatou Hooks 08/12/2018 08/13/2018 [facility] Procedures Procedure Code Date Perfomer Comments Source Cataract extraction [id number] [facility] Cholecystectomy [id number] [facility] Open reduction and fixation of fracture<sup>1</sup> [id number] left leg [facility] Assessment and Plan Assessment and Plan Date Source Extracted from:Title: Discharge Summary * Author: Roxi Ogden NP Date: 08/13/18 Discharge Information No changes made to medications this visit Patient to reintroduce blood pressure medication and insulin as blood pressure and diet stabilizes See med rec for detail Patient is advised to follow-up with her PCP within 1 week of discharge Discharge Plan Discharge Summary Plan Discharge Status: stable. Discharge instructions given: to patient. Discharge disposition: discharge to home. Extracted from:Title: Progress Note *neuro Author: Ny Mason MD Date: 08/12/18 Impression and Plan See dictation #[id number] Nausea, vomiting, lethargy, increased left sided weakness/numbness: now resolved. CT head unremarkable - MRI brain to look for posterior circulation infarct which could cause these symptoms. 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 08/13/2018 [facility] Plan of Care No Data Provided for This Section Social History Social History Date Source Social History TypeResponse Substance Abuse Use: None. Alcohol Never Smoking Status Never smoker; Exposure to Tobacco Smoke None; Cigarette Smoking Last 365 Days No; Reg Smoking Cessation Counseling No entered on: 08/12/18 08/12/2018 [facility] No data available for this section 08/06/2018 [facility] Outpatient Imaging [facility] No data available for this section 12/26/2017 [facility] Family History No Data Provided for This Section Advance Directives No Data Provided for This Section Functional Status No Data Provided for This Section
--- OUTSIDE RECORDS SUMMARY | 2019-01-13 10:06 | XMS REPORT | Summary of Care ---
Author Author [facility] [place] Organization [facility] [place] Address Unknown Phone Unavailable Encounter HQ Encntr_aliludmila(FIN) [phone] Date(s): 12/20/16 - 12/20/16 [facility] [place] [address] [place] [phone] Discharge Disposition: Home or Self Care Attending Physician: Jaida David MD Vital Signs No data available for this section Problem List Condition Effective Dates Status Health Status Informant Abdominal Active pain(Confirmed)1 1abnormal LFT's Allergies, Adverse Reactions, Alerts Substance Reaction Severity Status penicillins Active Medications No data available for this section Results No data available for this section Immunizations No data available for this section Procedures No data available for this section Social History No data available for this section Assessment and Plan No data available for this section
--- OUTSIDE RECORDS SUMMARY | 2019-01-13 10:06 | XMS REPORT | Summary of Care ---
Author Author [facility] [place] Organization [facility] [place] Address Unknown Phone Unavailable Encounter HQ Encntr_alias(FIN) [id number] Date(s): 12/25/17 - 12/25/17 [facility] [place] [address] [place] [phone] Discharge Disposition: Home or Self Care Attending [...]
--- OUTSIDE RECORDS SUMMARY | 2019-01-13 10:06 | XMS REPORT | Summary of Care ---
Author Author [facility] [place] Organization [facility] [place] Address Unknown Phone Unavailable Encounter HQ Angelitantr_adan(FIN) [phone] Date(s): 11/17/16 - 11/17/16 [facility] [place] [address] [place] [phone] Discharge Disposition: Home or Self Care Attending [...]
--- OUTSIDE RECORDS SUMMARY | 2019-01-13 10:06 | XMS REPORT | Summary of Care ---
Author Author [facility] Outpatient Imaging [facility] Outpatient Imaging [facility] Address Unknown Phone Unavailable Encounter HQ Encntr_alias(FIN) [id number] Date(s): 08/05/18 - 08/05/18 [facility] Outpatient Imaging [facility] [address] [place], [place] [address]- Discharge Disposition: Home or Self Care Attending Physician: Roger Faust MD Referring Physician: Roger Faust MD Vital Signs No data available for [...]
--- OUTSIDE RECORDS SUMMARY | 2019-01-13 10:07 | XMS REPORT | Summary of Care ---
Author Author [facility] Organization [facility] Address Unknown Phone Unavailable Encounter PAU Trevino(ENRIQUE) [id number] Date(s): 08/12/18 - 08/13/18 [facility] [id number] [place] [address]- Discharge Disposition: Home or Self Care Attending Physician: Fatou Hooks MD Vital Signs 1 2 3 Most recent to oldest [Reference Range]: 160.02 cm (08/12/18 4:01 PM) 162.56 cm (08/12/18 10:01 AM) Height 97.7 DegF (08/13/18 11:25 AM) 97.9 DegF (08/13/18 7:37 AM) 97.8 DegF (08/13/18 3:30 AM) Temperature Oral [96.4-99.1 DegF] 142/78 mmHg *HI* (08/13/18 12:30 PM) 146/71 mmHg *HI* (08/13/18 11:25 AM) 129/80 mmHg (08/13/18 7:37 AM) Blood Pressure [90-140/60-90 mmHg] 18 BRMIN (08/13/18 11:25 AM) 18 BRMIN (08/13/18 10:30 AM) 18 BRMIN (08/13/18 7:37 AM) Respiratory Rate [14-20 BRMIN] 81 bpm (08/13/18 12:30 PM) 81 bpm (08/13/18 11:25 AM) 90 bpm (08/13/18 7:37 AM) Peripheral Pulse Rate [60-100 bpm] 109.261 kg (08/12/18 4:01 PM) 90.909 kg (08/12/18 10:01 AM) Weight 42.67 m2 (08/12/18 4:01 PM) 34.4 m2 (08/12/18 10:01 AM) Body Mass Index Problem List Condition Effective Dates Status Health Status Informant Abdominal Active pain(Confirmed)1 1abnormal LFT's Allergies, Adverse Reactions, Alerts Substance Reaction Severity Status penicillins Active Medications acetaminophen 650 mg, Route: PO, Drug form: TAB, Q4H, Dosing Weight 90.909, kg, PRN For Temp > 100.4 F, Start date: 08/12/18 15:19:00 [employer], Duration: 30 day, Stop date: 15:18:00 [employer] HEL[employer] Start Date: 08/12/18 Stop Date: 08/12/18 Status: Deleted acetaminophen 650 mg, 2 tab, Route: PO, Drug form: TAB, Q4H, Dosing Weight 90.909, kg, PRN For Temp > 100.4 F, Start date: 08/12/18 14:42:00 [employer] HEL[employer], Duration: 30 day, Stop date: 09/11/18 14:41:00 [employer]PA[employer] HELPER Notes: Do not exceed 4 gm/day. (Same as: Tylenol) Start Date: 08/12/18 Stop Date: 08/13/18 Status: Discontinued Al hydroxide/Mg hydroxide/simethicone 200 mg-200 mg-20 mg/5 mL oral suspension 30 mL, Route: PO, Drug Form: SUSP, Dosing Weight 90.909, kg, Q4H, PRN Indigestio n, Start date: 08/12/18 15:19:00 [employer] HEL[employer], Duration: 30 day, Stop date: 09/11/18 15:1 8:00 [employer]PA[employer]ER HELPER Start Date: 08/12/18 Stop Date: 08/12/18 Status: Deleted Al hydroxide/Mg hydroxide/simethicone 200 mg-200 mg-20 mg/5 mL oral suspension 30 mL, Route: PO, Drug Form: SUSP, Dosing Weight 90.909, kg, Q4H, PRN Indigestio n, Start date: 08/12/18 14:42:00 [employer] HELPER, Duration: 30 day, Stop date: 09/11/18 14:4 1:00 [employer] REPAIRER HELPER Notes: (aluminum hydroxide-magnesium hyd-simethicone [phone]/5ml 30 ml ud S US) Start Date: 08/12/18 Stop Date: 08/13/18 Status: Discontinued aspirin 324 mg, 4 tab, Route: CHEW, Drug form: CHEWTAB, ONCE, Dosing Weight 90.909, kg, Priority: STAT, Start date: 08/12/18 14:05:00 [employer] REPAIRER HELPER, Stop date: 08/12/18 14:05:00 [employer] REPAIRER HELPER Notes: Take with food. Start Date: 08/12/18 Stop Date: 08/12/18 Status: Completed baclofen 10 mg, PO, TID, 0 Refill(s) Start Date: 08/12/18 Status: Ordered baclofen 10 mg, 1 tab, Route: PO, Drug form: TAB, TID, Dosing Weight 109.261, kg, Start d ate: 08/13/18 14:00:00 [employer] HELPER, Duration: 30 day, Stop date: 09/12/18 6:00:00 CDT Notes: (Same As: Sammy) Start Date: 08/13/18 Stop Date: 08/13/18 Status: Discontinued bisacodyl 10 mg, Route: MD, Drug form: SUPP, Daily, Dosing Weight 90.909, kg, PRN Constipa tion, Start date: 08/12/18 15:19:00 [employer] HELPER, Duration: 30 day, Stop date: 09/11/18 1 5:18:00 [employer]PA[employer]ER HELPER Start Date: 08/12/18 Stop Date: 08/12/18 Status: Deleted bisacodyl 10 mg, 1 supp, Route: MD, Drug form: SUPP, Daily, Dosing Weight 90.909, kg, PRN Constipation, Start date: 08/12/18 14:42:00 [employer]PAIRER HELPER, Duration: 30 day, Stop date: 14:41:00 [employer] REPAIRER HELPER Notes: (Same As: Dulcolax, Bisco-Lax) Start Date: 08/12/18 Stop Date: 08/13/18 Status: Discontinued cloNIDine 0.1 mg oral tablet 0.1 mg, Route: PO, Drug form: TAB, TID, Dosing Weight 90.909, kg, PRN Elevated B P, Start date: 08/12/18 15:19:00 [employer]PAIRER HELPER, Duration: 30 day, Stop date: 09/11/18 15:1 8:00 [employer] REPAIRER HELPER Start Date: 08/12/18 Stop Date: 08/12/18 Status: Deleted cloNIDine 0.1 mg oral tablet 0.1 mg, 1 tab, Route: PO, Drug form: TAB, TID, Dosing Weight 90.909, kg, PRN Ivette vated BP, Start date: 08/12/18 14:42:00 [employer] REPAIRER HELPER, Duration: 30 day, Stop date: 14:41:00 [employer] REPAIRER HELPER Notes: (Same As: Catapres) Start Date: 08/12/18 Stop Date: 08/13/18 Status: Discontinued clopidogrel 75 mg, 1 tab, Route: PO, Drug form: TAB, Daily, Dosing Weight 109.261, kg, Start date: 08/13/18 10:00:00 [employer]ER HELPER, Duration: 30 day, Stop date: 09/12/18 9:00:00 CDT Notes: (Same As: Plavix) Start Date: 08/13/18 Stop Date: 08/13/18 Status: Discontinued clopidogrel 75 mg oral tablet 75 mg=1 tab, PO, Daily, with dinner, 0 Refill(s) Start Date: 08/12/18 Status: Ordered dextromethorphan-guaiFENesin 10 mg-100 mg/5 mL oral liquid 10 mL, Route: PO, Drug Form: LIQ, Dosing Weight 90.909, kg, Q4H, PRN Cough, Star t date: 08/12/18 15:19:00 [employer]ER HELPER, Duration: 30 day, Stop date: 09/11/18 15:18:00 CS T Notes: (dextromethorphan-guaifenesin 10-100/5 ml LIQ) (Same as: Robitussin-DM) Start Date: 08/12/18 Stop Date: 08/13/18 Status: Discontinued dextromethorphan-guaiFENesin 10 mg-100 mg/5 mL oral liquid 10 mL, Route: PO, Drug Form: LIQ, Dosing Weight 90.909, kg, Q4H, PRN Cough, Star t date: 08/12/18 14:42:00 [employer] HELPER, Duration: 30 day, Stop date: 09/11/18 14:41:00 CS T Start Date: 08/12/18 Stop Date: 08/12/18 Status: Deleted Dextrose 50% Syringe 25 gm, 50 mL, Route: IVP, Drug Form: INJ, Dosing Weight 109.261, kg, PRN, PRN Bl ood Glucose Results, Start date: 08/12/18 21:54:00 [employer]PAIRER HELPER, Duration: 30 day, Stop d ate: 09/11/18 21:53:00 [employer] REPAIRER HELPER Start Date: 08/12/18 Stop Date: 08/13/18 Status: Discontinued Dextrose 50% Syringe 12.5 gm, 25 mL, Route: IVP, Drug Form: INJ, Dosing Weight 109.261, kg, PRN, PRN Blood Glucose Results, Start date: 08/12/18 21:54:00 [employer] REPAIRER HELPER, Duration: 30 day, Stop date: 09/11/18 21:53:00 [employer] REPAIRER HELPER Start Date: 08/12/18 Stop Date: 08/13/18 Status: Discontinued Dextrose 50% Syringe 12.5 gm, 25 mL, Route: IVP, Drug Form: INJ, Dosing Weight 90.909, kg, PRN, PRN B lood Glucose Results, Start date: 08/12/18 15:26:00 [employer] REPAIRER HELPER, Duration: 30 day, Stop date: 09/11/18 15:25:00 [employer] REPAIRER HELPER Start Date: 08/12/18 Stop Date: 08/12/18 Status: Discontinued Dextrose 50% Syringe 25 gm, 50 mL, Route: IVP, Drug Form: INJ, Dosing Weight 90.909, kg, PRN, PRN Blo od Glucose Results, Start date: 08/12/18 15:26:00 [employer] REPAIRER HELPER, Duration: 30 day, Stop da te: 09/11/18 15:25:00 [employer] REPAIRER HELPER Start Date: 08/12/18 Stop Date: 08/12/18 Status: Discontinued diphenhydrAMINE 25 mg, 1 tab, Route: PO, Drug form: TAB, Q6H, Dosing Weight 90.909, kg, PRN Itch ing, Start date: 08/12/18 15:19:00 [employer] REPAIRER HELPER, Duration: 30 day, Stop date: 09/11/18 15 :18:00 [employer] REPAIRER HELPER Start Date: 08/12/18 Stop Date: 08/13/18 Status: Discontinued diphenhydrAMINE 25 mg, Route: PO, Drug form: TAB, Q6H, Dosing Weight 90.909, kg, PRN Itching, St art date: 08/12/18 14:42:00 [employer] REPAIRER HELPER, Duration: 30 day, Stop date: 09/11/18 14:41:00 [employer] REPAIRER HELPER Start Date: 08/12/18 Stop Date: 08/12/18 Status: Deleted Dulcolax Laxative 10 mg, Route: PO, Drug form: ECTAB, BID, Dosing Weight 90.909, kg, PRN Constipat ion, Start date: 08/12/18 15:19:00 [employer]OBI[employer] REPAIRER HELPER, Duration: 30 day, Stop date: 09/11/18 15 :18:00 [employer] REPAIRER HELPER Start Date: 08/12/18 Stop Date: 08/12/18 Status: Deleted Dulcolax Laxative 10 mg, 2 tab, Route: PO, Drug form: ECTAB, BID, Dosing Weight 90.909, kg, PRN Co nstipation, Start date: 08/12/18 14:42:00 [employer] REPAIRER HELPER, Duration: 30 day, Stop date: 03/24 14:41:00 [employer]OMO[employer] REPAIRER HELPER Notes: (Same As: Dulcolax, Correctol) (Do Not Crush) "Do Not Crush" Start Date: 08/12/18 Stop Date: 08/13/18 Status: Discontinued DuoNeb inhalation solution 3 ml, Route: NEB, Drug Form: SOLN, Dosing Weight 90.909, kg, RQ6H, PRN Congestio n, Start date: 08/12/18 15:19:00 [employer] REPAIRER HELPER, Duration: 30 day, Stop date: 09/11/18 15:1 8:00 [employer] REPAIRER HELPER Notes: (Same as: Duoneb) Start Date: 08/12/18 Stop Date: 08/13/18 Status: Discontinued DuoNeb inhalation solution 3 ml, Route: NEB, Drug Form: SOLN, Dosing Weight 90.909, kg, RQ6H, PRN Congestio n, Start date: 08/12/18 14:42:00 [employer]OBI[employer] REPAIRER HELPER, Duration: 30 day, Stop date: 09/11/18 14:4 1:00 [employer] REPAIRER HELPER Start Date: 08/12/18 Stop Date: 08/12/18 Status: Deleted enoxaparin 40 mg, 0.4 mL, Route: SUB-Q, Drug form: INJ, [id number], Dosing Weight 90.909, kg, Start date: 08/12/18 21:00:00 [employer] REPAIRER HELPER, Duration: 30 day, Stop date: 09/10/18 21:00: 00 [employer] REPAIRER HELPER Notes: (Same as: Lovenox) Start Date: 08/12/18 Stop Date: 08/13/18 Status: Discontinued famotidine 20 mg, Route: IVP, ONCE, Dosing Weight 90.909, kg, Priority: STAT, Start date: 0 08/12/18 10:50:00 [employer] REPAIRER HELPER, Stop date: 08/12/18 10:50:00 [employer] REPAIRER HELPER Start Date: 08/12/18 Stop Date: 08/12/18 Status: Completed glucagon 1 mg, Route: IM, Drug form: PDR/INJ, PRN, Dosing Weight 109.261, kg, PRN Blood G lucose Results, Start date: 08/12/18 21:54:00 [employer] REPAIRER HELPER, Duration: 30 day, Stop date: 09/11/18 21:53:00 [employer] REPAIRER HELPER Start Date: 08/12/18 Stop Date: 08/13/18 Status: Discontinued glucagon 1 mg, Route: IM, Drug form: PDR/INJ, PRN, Dosing Weight 90.909, kg, PRN Blood Gl ucose Results, Priority: STAT, Start date: 08/12/18 15:26:00 [employer] REPAIRER HELPER, Duration: 30 d ay, Stop date: 09/11/18 15:25:00 [employer] REPAIRER HELPER Start Date: 08/12/18 Stop Date: 08/12/18 Status: Discontinued Humalog 12 unit, SUB-Q, Lunch, 0 Refill(s) Start Date: 08/12/18 Status: Ordered Humalog 10 unit, SUB-Q, After Breakfast, 0 Refill(s) Start Date: 08/12/18 Status: Ordered Humalog 10 unit, SUB-Q, Dinner, 0 Refill(s) Start Date: 08/12/18 Status: Ordered hydrALAZINE 10 mg, 0.5 mL, Route: IVP, Drug form: INJ, Q4H, Dosing Weight 90.909, kg, PRN El evated BP, Start date: 08/12/18 15:19:00 [employer] REPAIRER HELPER, Duration: 30 day, Stop date: 09/11 15:18:00 [employer] REPAIRER HELPER Notes: (Same as: Apresoline)Push over 5 minutes Start Date: 08/12/18 Stop Date: 08/13/18 Status: Discontinued hydrALAZINE 10 mg, Route: IVP, Drug form: INJ, Q4H, Dosing Weight 90.909, kg, PRN Elevated B P, Start date: 08/12/18 14:42:00 [employer] REPAIRER HELPER, Duration: 30 day, Stop date: 09/11/18 14:4 1:00 [employer] REPAIRER HELPER Start Date: 08/12/18 Stop Date: 08/12/18 Status: Deleted hydrochlorothiazide-losartan 12.5 mg-100 mg oral tablet 1 tab, PO, Daily, morning, # 30 tab, 0 Refill(s) Start Date: 08/12/18 Status: Ordered insulin glargine 40 unit, 0.4 mL, Route: SUB-Q, Drug form: SOLN, Bedtime, Dosing Weight 109.261, kg, Start date: 08/13/18 21:00:00 [employer] REPAIRER HELPER, Duration: 30 day, Stop date: 09/11/18 21: 00:00 [employer] REPAIRER HELPER Notes: Non-Formulary Drug(Same as Levemir)Do not hold insulin without contacting prescriberWASTE: F/P - Black; E - Municipal Trash Bin "single patient use only" Start Date: 08/13/18 Stop Date: 08/13/18 Status: Canceled insulin lispro 1 unit, 0.01 mL, Route: SUB-Q, Drug form: SOLN, Bedtime, Dosing Weight 109.261, kg, PRN Blood Glucose Results, Start date: 08/12/18 21:54:00 [employer] REPAIRER HELPER, Duration: 30 d ay, Stop date: 09/11/18 21:53:00 [employer] REPAIRER HELPER Notes: (Same as: Humalog ) Roll in palms of hands gently; Do not shake `vigorou sly. "Single Patient Use Only " WASTE: F/P - Black; E - Municipal Trash Bin St able for 28 days at room temperature.Expires in days from Da te Start Date: 08/12/18 Stop Date: 08/13/18 Status: Discontinued insulin lispro 4 unit, 0.04 mL, Route: SUB-Q, Drug form: SOLN, Bedtime, Dosing Weight 109.261, kg, PRN Blood Glucose Results, Start date: 08/12/18 21:54:00 [employer] REPAIRER HELPER, Duration: 30 d ay, Stop date: 09/11/18 21:53:00 [employer]OMOBILE B[employer] REPAIRER HELPER Notes: (Same as: Humalog ) Roll in palms of hands gently; Do not shake `vigorou sly. "Single Patient Use Only " WASTE: F/P - Black; E - Municipal Trash Bin St able for 28 days at room temperature.Expires in days from Da te Start Date: 08/12/18 Stop Date: 08/13/18 Status: Discontinued insulin lispro 2 unit, 0.02 mL, Route: SUB-Q, Drug form: SOLN, Bedtime, Dosing Weight 109.261, kg, PRN Blood Glucose Results, Start date: 08/12/18 21:54:00 [employer] REPAIRER HELPER, Duration: 30 d ay, Stop date: 09/11/18 21:53:00 AUTOMOBILE B[employer] REPAIRER HELPER Notes: (Same as: Humalog ) Roll in palms of hands gently; Do not shake `vigorou sly. "Single Patient Use Only " WASTE: F/P - Black; E - Municipal Trash [address] St able for 28 days at room temperature.Expires in days from Da te Start Date: 08/12/18 Stop Date: 08/13/18 Status: Discontinued insulin lispro 3 unit, 0.03 mL, Route: SUB-Q, Drug form: SOLN, Bedtime, Dosing Weight 109.261, kg, PRN Blood Glucose Results, Start date: 08/12/18 21:54:00 AUT[employer]OBILE [employer] REPAIRER HELPER, Duration: 30 d ay, Stop date: 09/11/18 21:53:00 AUTOMOBILE B[employer] REPAIRER HELPER Notes: (Same as: Humalog ) Roll in palms of hands gently; Do not shake `vigorou sly. "Single Patient Use Only " WASTE: F/P - Black; E - Municipal Trash [address] St able for 28 days at room temperature.Expires in days from Da te Start Date: 08/12/18 Stop Date: 08/13/18 Status: Discontinued insulin lispro 2 unit, 0.02 mL, Route: SUB-Q, Drug form: SOLN, Sliding Scale, Dosing Weight 90. 909, kg, PRN Blood Glucose Results, Start date: 08/12/18 15:26:00 [employer] REPAIRER HELPER, Duration: 30 day, Stop date: 09/11/18 15:25:00 AUTOMOBILE B[employer] REPAIRER HELPER Notes: (Same as: Humalog ) Roll in palms of hands gently; Do not shake `vigorou sly. "Single Patient Use Only " WASTE: F/P - Black; E - Municipal Trash [address] St able for 28 days at room temperature.Expires in days from Da te Start Date: 08/12/18 Stop Date: 08/13/18 Status: Discontinued insulin lispro 1 unit, 0.01 mL, Route: SUB-Q, Drug form: SOLN, Sliding Scale, Dosing Weight 90. 909, kg, PRN Blood Glucose Results, Start date: 08/12/18 15:26:00 AUT[employer]OBILE B[employer] REPAIRER HELPER, Duration: 30 day, Stop date: 09/11/18 15:25:00 AUTOMOBILE BODY REPAIRER HELPER Notes: (Same as: Humalog ) Roll in palms of hands gently; Do not shake `vigorou sly. "Single Patient Use Only " WASTE: F/P - Black; E - Municipal Trash [address] St able for 28 days at room temperature.Expires in days from Da te Start Date: 08/12/18 Stop Date: 08/13/18 Status: Discontinued insulin lispro 3 unit, 0.03 mL, Route: SUB-Q, Drug form: SOLN, Sliding Scale, Dosing Weight 90. 909, kg, PRN Blood Glucose Results, Start date: 08/12/18 15:26:00 AUT[employer]OBILE [employer] REPAIRER HELPER, Duration: 30 day, Stop date: 09/11/18 15:25:00 AUTOMOBILE B[employer] REPAIRER HELPER Notes: (Same as: Humalog ) Roll in palms of hands gently; Do not shake `vigorou sly. "Single Patient Use Only " WASTE: F/P - Black; E - Municipal Trash Bin St able for 28 days at room temperature.Expires in days from Da te Start Date: 08/12/18 Stop Date: 08/13/18 Status: Discontinued insulin lispro 4 unit, 0.04 mL, Route: SUB-Q, Drug form: SOLN, Sliding Scale, Dosing Weight 90. 909, kg, PRN Blood Glucose Results, Start date: 08/12/18 15:26:00 AUTOMOBILE B[employer] REPAIRER HELPER, Duration: 30 day, Stop date: 09/11/18 15:25:00 AUTOMOBILE BODY REPAIRER HELPER Notes: (Same as: Humalog ) Roll in palms of hands gently; Do not shake `vigorou sly. "Single Patient Use Only " WASTE: F/P - Black; E - Municipal Trash Bin St able for 28 days at room temperature.Expires in days from Da te Start Date: 08/12/18 Stop Date: 08/13/18 Status: Discontinued insulin lispro 5 unit, 0.05 mL, Route: SUB-Q, Drug form: SOLN, Sliding Scale, Dosing Weight 90. 909, kg, PRN Blood Glucose Results, Start date: 08/12/18 15:26:00 AUTOMOBILE B[employer] REPAIRER HELPER, Duration: 30 day, Stop date: 09/11/18 15:25:00 AUTOMOBILE BODY REPAIRER HELPER Notes: (Same as: Humalog ) Roll in palms of hands gently; Do not shake `vigorou sly. "Single Patient Use Only " WASTE: F/P - Black; E - Municipal Trash Bin St able for 28 days at room temperature.Expires in days from Da te Start Date: 08/12/18 Stop Date: 08/13/18 Status: Discontinued Levemir 100 units/mL See Instructions, 40 units SUB-Q at bedtime, 0 Refill(s) Start Date: 08/12/18 Status: Ordered magnesium citrate 1.745 g/30 mL oral liquid 150 ml, Route: PO, Drug Form: LIQ, Dosing Weight 90.909, kg, ONCE, PRN Constipat ion, Start date: 08/12/18 15:19:00 AUTOMO[employer] REPAIRER HELPER Notes: (Same as: Citrate of Magnesia)Concentration: 1.745 gm / 30 mL Start Date: 08/12/18 Stop Date: 08/13/18 Status: Discontinued magnesium citrate 1.745 g/30 mL oral liquid 150 ml, Route: PO, Dosing Weight 90.909, kg, ONCE, PRN Constipation, Start date: 08/12/18 14:42:00 [employer]OBI[employer] REPAIRER HELPER Start Date: 08/12/18 Stop Date: 08/12/18 Status: Deleted Milk of Magnesia 30 mL, Route: PO, Drug Form: SUSP, Dosing Weight 90.909, kg, Q3H, PRN Constipati on, Start date: 08/12/18 15:19:00 AUT[employer]OBILE B[employer] REPAIRER HELPER, Duration: 2 doses or times, Stop date: Yaima bhatia # of times Notes: (Same as: Milk of Magnesia, MOM) Start Date: 08/12/18 Stop Date: 08/13/18 Status: Discontinued Milk of Magnesia 30 mL, Route: PO, Drug Form: SUSP, Dosing Weight 90.909, kg, Q3H, PRN Constipati on, Start date: 08/12/18 14:42:00 AUT[employer]OBI[employer] B[employer] REPAIRER HELPER, Duration: 2 doses or times, Stop date: Yaima chavirad # of times Start Date: 08/12/18 Stop Date: 08/12/18 Status: Deleted Myrbetriq 50 mg oral tablet, extended release 50 mg, 1 tab, Route: PO, Drug form: ERTAB, Daily, Dosing Weight 109.261, kg, Sta rt date: 08/14/18 9:00:00 [employer]OBI[employer] REPAIRER HELPER, Duration: 30 day, Stop date: 09/12/18 9:00:00 CDT Start Date: 08/14/18 Stop Date: 08/13/18 Status: Canceled Myrbetriq 50 mg oral tablet, extended release 50 mg=1 tab, PO, Daily, dinner time, # 30 tab, 0 Refill(s) Start Date: 08/12/18 Status: Ordered [place] 5/325 oral tablet 1 tab, Route: PO, Drug Form: TAB, Dosing Weight 90.909, kg, Q4H, PRN Pain Score 4-6, Start date: 08/12/18 15:19:00 AUTOMOBILE B[employer] REPAIRER HELPER, Duration: 30 day, Stop date: 09/11/18 15 :18:00 AUTOMOBILE B[employer] REPAIRER HELPER Start Date: 08/12/18 Stop Date: 08/12/18 Status: Deleted [place] 5/325 oral tablet 1 tab, Route: PO, Drug Form: TAB, Dosing Weight 90.909, kg, Q4H, PRN Pain Score 4-6, Start date: 08/12/18 14:42:00 AUTOMOBILE B[employer] REPAIRER HELPER, Duration: 30 day, Stop date: 09/11/18 14 :41:00 AUTOMOBILE B[employer] REPAIRER HELPER Notes: (Same as: [place] 325/5) Do not exceed 4gm/day of acetaminophen. Start Date: 08/12/18 Stop Date: 08/13/18 Status: Discontinued Omnipaque 300 injectable solution 100 mL, Route: IVP, Drug Form: SOLN, Dosing Weight 90.909, kg, ONCE, GFR > 45 mL/min, STAT, Start date: 08/12/18 11:49:00 AUTOMOBILE B[employer] REPAIRER HELPER, Stop date: 08/12/18 11:49:00 AUTOMOBILE BODY REPAIRER HELPER Notes: (Same as:Omnipaque 300).WASTE: F/P - Black; E - Municipal Trash Bin Start Date: 08/12/18 Stop Date: 08/12/18 Status: Completed ondansetron 4 mg, Route: IVP, ONCE, Dosing Weight 90.909, kg, Priority: STAT, Start date: 10:50:00 AUTOMOBILE BODY REPAIRER HELPER, Stop date: 08/12/18 10:50:00 AUTOMOBILE BODY REPAIRER HELPER Start Date: 08/12/18 Stop Date: 08/12/18 Status: Completed ondansetron 4 mg, Route: IVP, Drug form: INJ, Q8H, Dosing Weight 90.909, kg, PRN Nausea & Vomiting, Start date: 08/12/18 15:19:00 AUTOMOBILE B[employer] REPAIRER HELPER, Duration: 30 day, Stop date: 09/11 15:18:00 AUTOMOBILE BODY REPAIRER HELPER Start Date: 08/12/18 Stop Date: 08/12/18 Status: Deleted ondansetron 4 mg, 2 mL, Route: IVP, Drug form: INJ, Q8H, Dosing Weight 90.909, kg, PRN Nause a & Vomiting, Start date: 08/12/18 14:42:00 AUTOMOBILE B[employer] REPAIRER HELPER, Duration: 30 day, Stop date: 09/11/18 14:41:00 AUTOMOBILE B[employer] REPAIRER HELPER Notes: (Same as: Mary) MEDICATION WASTE Product Size: 4 mgProduct Was laura: ___ mg Start Date: 08/12/18 Stop Date: 08/13/18 Status: Discontinued pantoprazole 40 mg oral enteric coated tablet 40 mg=1 tab, PO, Daily, morning, 0 Refill(s) Start Date: 08/12/18 Status: Ordered Protonix 40 mg, Route: IVP, Drug form: INJ, Before Dinner, Dosing Weight 90.909, kg, Star t date: 08/12/18 16:30:00 AUTOMOBILE B[employer] REPAIRER HELPER, Duration: 30 day, Stop date: 09/10/18 16:30:00 CS T Notes: For IV push reconstitute with 10 ml 0.9% sodium chloride and push over 2 minutes. (Same as: Protonix) Start Date: 08/12/18 Stop Date: 08/13/18 Status: Discontinued rosuvastatin 20 mg, 2 tab, Route: PO, Drug form: TAB, Bedtime, Dosing Weight 109.261, kg, Sta rt date: 08/13/18 21:00:00 AUTOMOBILE B[employer] REPAIRER HELPER, Duration: 30 day, Stop date: 09/11/18 21:00:[address] Notes: (Same As: Crestor) Start Date: 08/13/18 Stop Date: 08/13/18 Status: Canceled rosuvastatin 20 mg oral tablet 20 mg=1 tab, PO, Daily, dinner time, # 30 tab, 0 Refill(s) Start Date: 08/12/18 Stop Date: 09/11/18 Status: Ordered Saline Flush 0.9% 10 mL, Route: IVP, Drug Form: INJ, Dosing Weight 90.909, kg, PRN, PRN Line Flush , Start date: 08/12/18 10:50:00 AUTOMOBILE B[employer] REPAIRER HELPER, Duration: 30 day, Stop date: 09/11/18 10:49 :00 AUTOMOBILE BODY REPAIRER HELPER Notes: (Same as: BD Posiflush) Start Date: 08/12/18 Stop Date: 08/12/18 Status: Discontinued Saline Flush 0.9% 10 ml, Route: IVP, Drug Form: INJ, Dosing Weight 90.909, kg, PRN, PRN Line Flush , Start date: 08/12/18 15:33:00 [employer], Duration: 30 day, Stop date: 09/11/18 15:32 :00 [employer] Notes: (Same as: BD Posiflush) Start Date: 08/12/18 Stop Date: 08/13/18 Status: Discontinued Saline Flush 0.9% 10 ml, Route: IVP, Drug Form: INJ, Dosing Weight 90.909, kg, Q12H, Start date: 0 08/12/18 21:00:00 [employer], Duration: 30 day, Stop date: 09/11/18 9:00:00 [employer] Notes: (Same as: BD Posiflush) Start Date: 08/12/18 Stop Date: 08/13/18 Status: Discontinued simethicone 80 mg, 1 tab, Route: PO, Drug form: CHEWTAB, Q6H, Dosing Weight 90.909, kg, PRN Gas, Start date: 08/12/18 15:19:00 [employer], Duration: 2 doses or times, Stop date: L imited # of times Notes: (Same as: Mylicon) Start Date: 08/12/18 Stop Date: 08/13/18 Status: Discontinued simethicone 80 mg, Route: PO, Drug form: CHEWTAB, Q6H, Dosing Weight 90.909, kg, PRN Gas, St art date: 08/12/18 14:42:00 [employer], Duration: 2 doses or times, Stop date: Limited # of times Start Date: 08/12/18 Stop Date: 08/12/18 Status: Deleted Sodium Chloride 0.9% (Bolus) IV 500 mL, Infuse Over: 1 hr, Route: IV, ONCE, Priority: STAT, Dosing Weight 90.909 kg, Start date: 08/12/18 10:50:00 [employer], Stop date: 08/12/18 10:50:00 [employer] Start Date: 08/12/18 Stop Date: 08/12/18 Status: Completed Sodium Chloride 0.9% IV 1,000 mL 1,000 mL, Rate: 75 ml/hr, Infuse over: 13.3 hr, Route: IV, Dosing Weight 90.909 kg, Total Volume: 1,000, Start date: 08/12/18 15:19:00 [employer], Duration: [address], [address] op date: 09/11/18 15:18:00 [employer], 2.06, m2 Start Date: 08/12/18 Stop Date: 08/13/18 Status: Discontinued Tessalon Perles 100 mg, Route: PO, Drug form: CAP, Q8H, Dosing Weight 90.909, kg, PRN Cough, Sta rt date: 08/12/18 15:19:00 [employer], Duration: 30 day, Stop date: 09/11/18 15:18:[address] Start Date: 08/12/18 Stop Date: 08/12/18 Status: Deleted Tessalon Perles 100 mg, 1 cap, Route: PO, Drug form: CAP, Q8H, Dosing Weight 90.909, kg, PRN Cou gh, Start date: 08/12/18 14:42:00 AUTOMOBILE BODY REPAIRER HELPER, Duration: 30 day, Stop date: 09/11/18 14: 41:00 AUTOMOBILE BODY REPAIRER HELPER Notes: (Same As: Tessalon Perles)"Do Not Crush" Start Date: 08/12/18 Stop Date: 08/13/18 Status: Discontinued venlafaxine 75 mg, 1 cap, Route: PO, Drug form: ERCAP, Daily, Dosing Weight 109.261, kg, Sta rt date: 08/13/18 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:00 AUTOMOBILE BODY REPAIRER HELPER, Duration: 30 day, Stop date: 09/12/18 9:00:00 CD T Notes: Do not open, crush, or chew.(Same As: Effexor XR) Start Date: 08/13/18 Stop Date: 08/13/18 Status: Discontinued venlafaxine 75 mg oral capsule, extended release 75 mg=1 cap, PO, Daily, morning, # 30 cap, 0 Refill(s) Start Date: 08/12/18 Status: Ordered Results ELECTROLYTES 1 2 3 Most recent to oldest [Reference Range]: 144 mEq/L (08/13/18 5:44 AM) 139 mEq/L (08/12/18 10:55 AM) Sodium Lvl [135-145 mEq/L] 4.3 mEq/L (08/13/18 5:44 AM) 4.6 mEq/L (08/12/18 10:55 AM) Potassium Lvl [3.5-5.1 mEq/L] 107 mEq/L (08/13/18 5:44 AM) 102 mEq/L (08/12/18 10:55 AM) Chloride Lvl [95-109 mEq/L] 30 mEq/L (08/13/18 5:44 AM) 29 mEq/L (08/12/18 10:55 AM) CO2 [24-32 mEq/L] 11.3 mEq/L (08/13/18 5:44 AM) 12.6 mEq/L (08/12/18 10:55 AM) AGAP [10.0-20.0 mEq/L] CHEM PANEL 1 2 3 Most recent to oldest [Reference Range]: 1.12 mg/dL (08/13/18 5:44 AM) 1.11 mg/dL (08/12/18 10:55 AM) Creatinine Lvl [0.50-1.40 mg/dL] 49 mL/min/1.73m2 1 *NA* (08/13/18 5:44 AM) 49 mL/min/1.73m2 2 *NA* (08/12/18 10:55 AM) eGFR 25 mg/dL *HI* (08/13/18 5:44 AM) 30 mg/dL *HI* (08/12/18 10:55 AM) BUN [7-22 mg/dL] 27 *HI* (08/12/18 10:55 AM) B/C Ratio [6-25] 174 mg/dL *HI* (08/13/18 5:44 AM) 209 mg/dL *HI* (08/12/18 10:55 AM) Glucose Lvl [70-99 mg/dL] 7.3 g/dL (08/12/18 10:55 AM) Total Protein [6.4-8.4 g/dL] 3.6 g/dL (08/12/18 10:55 AM) Albumin Lvl [3.5-5.0 g/dL] 3.7 g/dL (08/12/18 10:55 AM) Globulin [2.7-4.2 g/dL] 1.0 (08/12/18 10:55 AM) A/G Ratio [0.7-1.6] 8.9 mg/dL (08/13/18 5:44 AM) 9.2 mg/dL (08/12/18 10:55 AM) Calcium Lvl [8.5-10.5 mg/dL] 20 unit/L (08/12/18 10:55 AM) ALT [0-65 unit/L] 21 unit/L (08/12/18 10:55 AM) AST [0-37 unit/L] 105 unit/L (08/12/18 10:55 AM) Alk Phos [39-136 unit/L] 0.4 mg/dL (08/12/18 10:55 AM) Bili Total [0.2-1.3 mg/dL] 77 unit/L (08/12/18 10:55 AM) Amylase Lvl [25-115 unit/L] 183 unit/L (08/12/18 10:55 AM) Lipase Lvl [73-393 unit/L] 1Result Comment: The eGFR is calculated using the [...] from the National Kidney Disease Education Program ( NKDEP) which additionally recommends that when the eGFR is used in patients with extremes of body mass index for purposes of drug dosing, the eGFR should be mul tiplied by the estimated BMI. 2Result Comment: The eGFR is calculated using the [...] from the National Kidney Disease Education Program ( NKDEP) which additionally recommends that when the eGFR is used in patients with extremes of body mass index for purposes of drug dosing, the eGFR should be mul tiplied by the estimated BMI. CARDIAC ENZYMES 1 2 3 Most recent to oldest [Reference Range]: <0.02 ng/mL (08/12/18 6:55 PM) 0.02 ng/mL (08/12/18 4:39 PM) <0.02 ng/mL (08/12/18 10:55 AM) Troponin-I [0.00-0.40 ng/mL] URINE AND STOOL 1 2 3 Most recent to oldest [Reference Range]: Slight Cloudy (08/12/18 10:55 AM) UA Turbidity [Clear] Yellow *NA* (08/12/18 10:55 AM) UA Color [Yellow] 6.5 (08/12/18 10:55 AM) UA pH [5.0-8.0] 1.020 (08/12/18 10:55 AM) UA Spec Grav [<=1.030] 250 *ABN* (08/12/18 10:55 AM) UA Glucose [Negative] Moderate *ABN* (08/12/18 10:55 AM) UA Blood [Negative] Negative *NA* (08/12/18 10:55 AM) UA Ketones [Negative] 100 mg/dL *ABN* (08/12/18 10:55 AM) UA Protein [Negative mg/dL] 0.2 EU/dL (08/12/18 10:55 AM) UA Urobilinogen [0.1-1.0 EU/dL] Negative *NA* (08/12/18 10:55 AM) UA Bili [Negative] Negative (08/12/18 10:55 AM) UA Leuk Est [Negative] Negative (08/12/18 10:55 AM) UA Nitrite [Negative] 2 /HPF (08/12/18 10:55 AM) UA WBC [0-5 /HPF] 25 /HPF *HI* (08/12/18 10:55 AM) UA RBC [0-2 /HPF] Occasional /HPF *NA* (08/12/18 10:55 AM) UA Bacteria [None Seen /HPF] Few /LPF *NA* (08/12/18 10:55 AM) UA Sq Epi [Few /LPF] Few /LPF *NA* (08/12/18 10:55 AM) UA Mucus [None Seen /LPF] HEMATOLOGY 1 2 3 Most recent to oldest [Reference Range]: 6.0 K/CMM (08/13/18 5:44 AM) 7.8 K/CMM (08/12/18 10:55 AM) WBC [3.7-10.4 K/CMM] 4.19 M/CMM *LOW* (08/13/18 5:44 AM) 4.63 M/CMM (08/12/18 10:55 AM) RBC [4.20-5.40 M/CMM] 12.4 g/dL (08/13/18 5:44 AM) 13.7 g/dL (08/12/18 10:55 AM) Hgb [12.0-16.0 g/dL] 38.3 % (08/13/18 5:44 AM) 42.2 % (08/12/18 10:55 AM) Hct [36.0-48.0 %] 91.5 fL (08/13/18 5:44 AM) 91.3 fL (08/12/18 10:55 AM) MCV [80.0-98.0 fL] 29.6 pg (08/13/18 5:44 AM) 29.6 pg (08/12/18 10:55 AM) MCH [27.0-31.0 pg] 32.4 g/dL (08/13/18 5:44 AM) 32.5 g/dL (08/12/18 10:55 AM) MCHC [32.0-36.0 g/dL] 14.0 % (08/13/18 5:44 AM) 13.7 % (08/12/18 10:55 AM) RDW [11.5-14.5 %] 9.1 fL (08/13/18 5:44 AM) 9.0 fL (08/12/18 10:55 AM) MPV [7.4-10.4 fL] 154 K/CMM (08/13/18 5:44 AM) 160 K/CMM (08/12/18 10:55 AM) Platelet [133-450 K/CMM] 64.4 % (08/13/18 5:44 AM) 85.2 % *HI* (08/12/18 10:55 AM) Segs [45.0-75.0 %] 22.9 % (08/13/18 5:44 AM) 10.3 % *LOW* (08/12/18 10:55 AM) Lymphocytes [20.0-40.0 %] 11.5 % (08/13/18 5:44 AM) 4.2 % (08/12/18 10:55 AM) Monocytes [2.0-12.0 %] 0.8 % (08/13/18 5:44 AM) Eosinophils [0.0-4.0 %] 0.4 % (08/13/18 5:44 AM) 0.3 % (08/12/18 10:55 AM) Basophils [0.0-1.0 %] 3.9 K/CMM (08/13/18 5:44 AM) 6.6 K/CMM (08/12/18 10:55 AM) Neutrophils # [1.5-8.1 K/CMM] 1.4 K/CMM (08/13/18 5:44 AM) 0.8 K/CMM *LOW* (08/12/18 10:55 AM) Lymphocytes # [1.0-5.5 K/CMM] 0.7 K/CMM (08/13/18 5:44 AM) 0.3 K/CMM (08/12/18 10:55 AM) Monocytes # [0.0-0.8 K/CMM] 0.1 K/CMM (08/13/18 5:44 AM) Eosinophils # [0.0-0.5 K/CMM] 12.1 seconds (08/12/18 10:55 AM) PT [12.0-14.7 seconds] 0.91 (08/12/18 10:55 AM) INR [0.85-1.17] 33.5 seconds (08/12/18 10:55 AM) PTT [22.9-35.8 seconds] Immunizations No data available for this section Procedures Procedure Date Related Diagnosis Body Site Status Cataract extraction Completed Cholecystectomy Completed Open reduction and fixation of fracture1 Completed 1left leg Social History Social History Type Response Substance Abuse Use: None. Alcohol Never Smoking Status Never smoker; Exposure to Tobacco Smoke None; Cigarette Smoking Last 365 Days No; Reg Smoking Cessation Counseling No entered on: 08/12/18 Assessment and Plan Extracted from: Title: Discharge Summary * Author: Roxi Ogden NP [...] patient. Discharge disposition: discharge to home. Extracted from: Title: Progress Note *neuro Author: Ny Mason MD Date: 08/12/18 Impression and Plan See dictation #[id number] Nausea, vomiting, lethargy, increased left sided weakness/numbness: now resolved. CT head unremarkable - MRI brain to look for posterior circulation infarct which could cause these symptoms. - If negative, ok to d/c when medically stable Extracted from: Title: General Admission H&P * Author: Fatou Hooks [...]
--- OUTSIDE RECORDS SUMMARY | 2019-01-13 10:07 | XMS REPORT | CCD ---
Author Author Auto Generated Organization [facility] Outpatient Imaging - [place] Address Unknown Phone Unavailable Care Team Providers Care News Clipping Cutter Name Role Phone Jaida David CP Bryant Tan PP Allergies, Adverse Reactions, Alerts Substance Reaction Status penicillins Active Problem List Condition Effective Dates Status Abdominal pain1 Active 1abnormal LFT's
--- OUTSIDE RECORDS SUMMARY | 2019-01-13 10:07 | XMS REPORT | CCD ---
Author Author Auto Generated Organization [facility] Outpatient Imaging - [place] Address Unknown Phone Unavailable Care Team Providers Care Chocolate Molder Name Role Phone Jaida David CP Bryant Tan PP Allergies, Adverse Reactions, Alerts Substance Reaction Status penicillins Active Problem List Condition Effective Dates Status Abdominal pain1 Active 1abnormal LFT's
--- OUTSIDE RECORDS SUMMARY | 2019-01-13 10:07 | XMS REPORT | Summary of Care ---
Author Organization Unknown Address Unknown Phone Unavailable Care Team Providers Care Professor Of German Name Role Phone Bryant Tan PCP Encounter HQ Angelitantr_jpludmila(ENRIQUE) [id number] Date(s): 10/18/13 - 10/18/13 [facility] Outpatient Imaging - [address] [address] [facility] Discharge Disposition: Home Physician Attending: Jaida David Reason for Visit 719.41 - JOINT PAIN-SHLD Problem List Condition Effective Dates Status Health Status Informant Abdominal Active pain(Confirmed)1 1abnormal LFT's Allergies, Adverse Reactions, Alerts Substance Reaction Severity Status penicillins Active Medications No data available for this section Medications Administered During Your Visit No data available for this section Immunizations No data available for this section
--- OUTSIDE RECORDS SUMMARY | 2019-01-13 10:07 | XMS REPORT | CCD ---
Author Author Auto Generated Organization [facility] Outpatient Imaging - [place] Address Unknown Phone Unavailable Care Team Providers Care Armament Repairer Name Role Phone Jaida David CP Bryant Tan PP Allergies, Adverse Reactions, Alerts Substance Reaction Status penicillins Active Problem List Condition Effective Dates Status Abdominal pain1 Active 1abnormal LFT's
--- OUTSIDE RECORDS SUMMARY | 2019-01-13 10:07 | XMS REPORT | Summary of Care ---
Author Organization Unknown Address Unknown Phone Unavailable Care Team Providers Care Hand Sprayer Name Role Phone Bryant Tan PCP Encounter HQ Encntr_adan(FIN) [id number] Date(s): 03/07/14 - 03/07/14 [facility] Outpatient Imaging - [address] [address] [facility] Discharge Disposition: Home Physician Attending: Jaida David MD Reason for Visit 719.46 - JOINT PAIN-L/[place] Problem List Condition Effective Dates Status Health Status Informant Abdominal Active pain(Confirmed)1 1abnormal LFT's Allergies, Adverse Reactions, Alerts Substance Reaction Severity Status penicillins Active Medications No data available for this section Medications Administered During Your Visit No data available for this section Immunizations No data available for this section
--- OUTSIDE RECORDS SUMMARY | 2019-01-13 10:07 | XMS REPORT | CCD ---
Author Author Auto Generated Organization [facility] Outpatient Imaging - [place] Address Unknown Phone Unavailable Care Team Providers Care Paint Sprayer Sandblaster Name Role Phone Winnie Pendleton CP Bryant Tan PP Allergies, Adverse Reactions, Alerts Substance Reaction Status penicillins Active Problem List Condition Effective Dates Status Abdominal pain1 Active 1abnormal LFT's
--- OUTSIDE RECORDS SUMMARY | 2019-01-13 10:08 | XMS REPORT | Summary of Care ---
Author Organization Unknown Address Unknown Phone Unavailable Care Team Providers Care Department Of Natural Resources Officer Name Role Phone Bryant Tan PCP Encounter HQ Encntr_alias(FIN) [id number] Date(s): 07/14/14 - 07/14/14 [facility] Outpatient Imaging - [address] [address]- [facility] Discharge Disposition: Home Physician Attending: Jaida David MD Reason for Visit V76.12 - SCREEN MAMMOGRA Problem List Condition Effective Dates Status Health Status Informant Abdominal Active pain(Confirmed)1 1abnormal LFT's Allergies, Adverse Reactions, Alerts Substance Reaction Severity Status penicillins Active Medications No data available for this section Medications Administered During Your Visit No data available for this section Immunizations No data available for this section
--- OUTSIDE RECORDS SUMMARY | 2019-01-13 10:08 | XMS REPORT | Summary of Care ---
Author Author [facility] Outpatient Imaging - [place] Organization [facility] Outpatient Imaging - [place] Address Unknown Phone Unavailable Care Team Providers Care Intermediate Accountant Name Role Phone Bryant Tan PCP Encounter HQ Encntr_alias([facility]) [id number] Date(s): 09/01/15 - 09/01/15 [facility] Outpatient Imaging - [address] [phone] Discharge Disposition: Home Attending Physician: Jaida David MD Vital Signs [...]
--- OUTSIDE RECORDS SUMMARY | 2019-01-13 10:08 | XMS REPORT ---
Author Author [facility] Address Unknown Phone Unavailable Care Team Providers Care Talent Development Analyst Name Role Phone GABO RICE PP Unavailable SMITH DEL REAL Unavailable Unavailable Problems This patient has no known problems. Allergies, Adverse Reactions, Alerts This patient has no known allergies or adverse reactions. Medications This patient has no known medications. Encounters Start Date/Time End Date/Time Encounter Type Admission Type Attending Clinicians Care Facility Care Department Encounter ID 2017-08-04 11:40:00 2017-08-04 11:40:00 Outpatient C [facility] MED [id number] 2017-07-24 11:01:00 2017-07-24 11:01:00 Emergency E SMITH DEL REAL [facility] MED [id number] Results Test Description Test Time Test Comments Text Results Atomic Results Result Comments CT ABDOMEN WO CONTRAST 2017-08-04 15:14:15 DICTATION LOCATION: [id number] INFORMATION: R10.13: EPIGASTRIC PAINCOMPARISON: None Available. PROCEDURE: CT of the Abdomen was performed without intravenous contrast. Intravenous contrast: None.Sagittal and coronal reformats were performed.One or more of the following dose reduction techniques were used:Automated exposure control, adjustment of the mA and/or kV according topatient size, and/or utilization of iterative reconstruction technique. FINDINGS:LOWER CHEST: Aortic root calcification.LIVER: Within normal limits.BILE DUCTS: Normal caliber.GALLBLADDER: Not visualized and possibly collapsed or surgicallyremoved.SPLEEN: Within normal limits.PANCREAS: Within normal limits.ADRENALS: Within normal limits.KIDNEYS/URETERS: 7.1 cm right renal cyst. No hydronephrosis.VISUALIZED PORTIONS:BOWEL: Colonic diverticulosis. PERITONEUM: No ascites.VESSELS: Atherosclerotic calcification of the aortoiliac vessels. RETROPERITONEUM: No lymphadenopathy. ABDOMINAL WALL: 5.3 cm fat-containing umbilical hernia.BONES: Degenerative changes in the spine.IMPRESSION: Fat-containing umbilical hernia.Colonic diverticulosis without evidence of acute diverticulitis. 7.1 cm simple right renal cyst. Culture, Urine 2017-07-26 08:36:00 Specimen: Urine, CC-MidstreamCollected: 07/24/2017 12:24 Status: Final Last Updated: 07/26/2017 08:36 (1) ER Bed 3 ua in lab Isolate (Final) (Final) 07/25/17 >100,000 CFU/mL Es cherichia coli Amikacin <=16 Susceptible Ampicillin >16 Resistant Ampicillin/Sulb 16/8 Intermediate Cefazolin <=8 Susceptible Cefepime <=4 Susceptible Cefotaxime <=2 Susceptible Ceftazidime <=1 Susceptible Ceftriaxone <=1 Susceptible Cefuroxime <=4 Susceptible Ciprofloxacin >2 Resistant Gentamicin >8 Resistant Imipenem <=1 Susceptible Levofloxacin >4 Resistant Meropenem <=1 Susceptible Nitrofurantoin <=32 Susceptible Piperacillin/Tazo <=16 Susceptible Tobramycin <=4 Susceptible Trimethoprim/Sulfa >2/38 Resistant Urinalysis Complete 2017-07-24 13:26:00 Color (test code=COLOR) Yellow Yellow,Straw,Pl yellow Clarity (test code=CLAR) Sl Cloudy Clear Specific Palmer (test code=SPGR) 1.015 1.001-1.035 pH (test code=PH) 6.0 5.0-9.0 Ketone (test code=KET) Negative mg/dL Negative Glucose (test code=GLUCUR) Negative mg/dL Negative Protein (test code=PROT) Negative mg/dL Negative Bilirubin (test code=BILI) Negative mg/dL Negative Occult Blood (test code=UDOB) Moderate Negative Urobilinogen (test code=UROB) 0.2 mg/dL 0.2-1.0 Nitrite (test code=NIT) Negative Negative Leuk Esterase (test code=LEUK) Large Negative Micros Exam (test code=MEXAM) Indicated Epithelial Cells (test code=EPI) 20-29 /LPF 0-30 WBC, Urine (test code=UWBC) 30-49 /HPF 0-5 RBC, Urine (test code=URBC) 6-10 /HPF 0-5 Bacteria (test code=BACT) Many /HPF [id number] 12:55:00* Test Item Value Reference Range Comments Lipase (test code=LIP) 60 U/L 13-60 Comprehensive Metabolic [id number] 12:55:00* Test Item Value Reference Range Comments Sodium (test code=NA) 139 mmol/L 135-145 Potassium (test code=K) 5.3 mmol/L 3.5-5.1 Chloride (test code=CL) 102 mmol/L 98-105 Carbon Dioxide (test code=CO2) 27 mmol/L 22-29 Glucose (test code=GLU) 128 mg/dL 70-115 Blood Urea Nitrogen (test code=BUN) 25 mg/dL 8-23 Creatinine (test code=CREAT) 1.0 mg/dL 0.5-0.9 Calcium (test code=CA) 8.7 mg/dL 8.3-10.5 Prot Total (test code=TP) 6.4 g/dL 6.4-8.3 Albumin (test code=ALB) 3.4 g/dL 3.5-5.2 A/G Ratio (test code=AGRATIO) 1.1 Ratio Globulin (test code=GLOB) 3.0 2.9-3.1 Bili Total (test code=TBIL) 0.5 mg/dL 0.1-0.9 Alk Phos (test code=APHOS) 454 U/L 35-104 AST (test code=AST) 48 U/L 1-32 ALT (test code=ALT) 188 U/L 1-33 BUN/Creatinine Ratio (test code=BCRATIO) 25.0 Anion Gap (test code=AGAP) 10 mmol/L 7-16 Estimated GFR (test code=GFR) 58 mL/min/1.73m2 eGFR (estimated Glomerular Filtration Rate) is an estimated value,calculated from the patient's serum creatinine using the MDRD equation.It is NOT the patient's actual GFR. The eGFR provides a more clinicallyuseful measure of kidney disease than serum creatinine alone.This calculation takes sex and race into account, if the informationis provided. If the race is not provided, and the patient isAfrican-Mosoth[place], multiply by 1.212. If sex is not provided, and thepatient is female, multiply by 0.742. Results for patients <18 years ofage have not been validated by the MDRD study and should be interpretedwith caution.eGFR Result Interpretation:eGFR > or=60 is in the Normal RangeeGFR < 60 may mean kidney diseaseeGFR < 15 may mean kidney failureRanges recommended by the National Kidney Foundat ion,http://nkdep.nih.gov Troponin [id number] 12:51:00* Test Item Value Reference Range Comments Troponin T (test code=ALEXEY) <0.010 ng/mL 0.000-0.090 CBC with [id number] 12:46:00* Test Item Value Reference Range Comments WBC (test code=WBC) 9.0 K/cumm 4.4-10.5 RBC (test code=RBC) 3.95 M/cumm 3.75-5.20 Hemoglobin (test code=HGB) 11.6 gm/dL 12.2-14.8 Hematocrit (test code=HCT) 35.3 % 36.5-44.4 MCV (test code=MCV) 89.4 fL 80-100 MCH (test code=MCH) 29.4 pg 27.0-32.5 MCHC (test code=MCHC) 32.9 g/dL 32.0-37.5 RDW (test code=RDW) 13.8 % 11.5-14.5 Platelet Count (test code=PLTCT) 248 K/cumm 140-440 MPV (test code=MPV) 10.1 fL Diff Method (test code=DIFFM) Auto Neutrophil (test code=NEUT) 64.5 % 36-70 Lymphocyte (test code=LYMPH) 28.4 % 12-44 Monocyte (test code=MONO) 5.7 % 0-11 Eosinophil (test code=EOS) 1.1 % 0-7 Basophil (test code=BASO) 0.4 % 0-2 Neutro Abs (test code=ANEUT) 5.8 K/cumm 1.6-7.4 Lymph Abs (test code=ALYMPH) 2.5 K/cumm 0.5-4.6 [place] Abs (test code=AMONO) 0.5 K/cumm 0.0-1.2 Eos Abs (test code=AEOS) 0.10 K/cumm 0.00-0.74 Baso Abs (test code=ABASO) 0.0 K/cumm 0.00-0.21
--- OUTSIDE RECORDS SUMMARY | 2019-01-13 10:08 | XMS REPORT | Summary of Care ---
Author Author [facility] Outpatient Imaging - [place] Organization [facility] Outpatient Imaging - [place] Address Unknown Phone Unavailable Encounter HQ Encntr_aliludmila(FIN) [id number] Date(s): 10/02/16 - 10/02/16 [facility] Outpatient Imaging - [place] [address] [place] [address] [phone] Discharge Disposition: Home or Self Care Attending [...]
[2019-01-13 12:55] VITALS: BP 137/72
== END | disposition home or self-care (01) ==
LOC: OR 10:03
PROVIDERS: ATTEND Internal Medicine
DX: D12.2 Benign neoplasm of ascending colon (principal); D12.3 Benign neoplasm of transverse colon; D12.5 Benign neoplasm of sigmoid colon; K62.1 Rectal polyp; K64.8 Other hemorrhoids; K59.00 Constipation, unspecified; K21.9 Gastro-esophageal reflux disease without esophagitis; I10 Essential (primary) hypertension; E11.9 Type 2 diabetes mellitus without complications; I69.354 Hemiplegia and hemiparesis following cerebral infarction affecting left non-dominant side; R42 Dizziness and giddiness; Z88.0 Allergy status to penicillin; Z01.810 Encounter for preprocedural cardiovascular examination; Z01.812 Encounter for preprocedural laboratory examination; Z79.02 Long term (current) use of antithrombotics/antiplatelets; Z68.37 Body mass index [BMI] 37.0-37.9, adult
CPT/HCPCS: 36415 ×2; 45380; 45384; 45385; 82948; 85025; 93005; J2250